=== PATIENT | male | born 1950 | race Caucasian/White ===

== ENCOUNTER 2018-10-10 13:51 | Inpatient (IN) | payer OTHER, MEDICARE ==
[~2018-10-10] VITALS: Ht 182.9 cm; Wt 76.6 kg
[~2018-10-10 13:51] MED LIST: AMLO10TA6 PO; CHOL1CRY3 PO; FENO160T PO; LIPA1CAP45 PO; LOSA25TA25 PO; LOVA40TA2 PO; MELO15TA24 PO; OMEG1CAP24 PO; PANT40TA5 PO; TAMS0.4C2 PO; TRAM50TA2 PO
[2018-10-10 14:29] LABS: BASOPHILS # (AUTO) 0.03 x10^3/uL (0-0.1); BASOPHILS % (AUTO) 0 % (0-1); EOSINOPHILS # (AUTO) 0.03 x10^3/uL (0-0.4); EOSINOPHILS % (AUTO) 0 % (1-7); LYMPHOCYTES # (AUTO) 1.74 x10^3/uL (1-3.4); LYMPHOCYTES % (AUTO) 17 % (22-44); MD NO; MEAN CORPUSCULAR HEMOGLOBIN 30.3 pg (27.5-34.5); MEAN CORPUSCULAR HGB CONC 32.6 g/dL (33.2-36.2); MEAN CORPUSCULAR VOLUME 92.9 fL (81-97); MEAN PLATELET VOLUME 7.3 fL (7.4-10.4); MONOCYTES # (AUTO) 1.09 x10^3/uL (0.2-0.8); MONOCYTES % (AUTO) 11 % (2-9); NEUTROPHILS # (AUTO) 7.39 x10^3/uL (1.8-6.8); NEUTROPHILS % (AUTO) 72 % (42-75); PLATELET COUNT 475 x10^3/uL (130-400); RED BLOOD COUNT 3.78 x10^6/uL (4.38-5.82)
[2018-10-10] MEDS ORDERED: SODIUM CHLORIDE FLUSH 10ML SYR IVF ONE ×2 (14:30→15:30)
[2018-10-10 14:37] LABS: ALANINE AMINOTRANSFERASE 79 U/L (12-78); ALBUMIN 3.8 g/dL (3.4-5.0); ANION GAP 5 mmol/L (5-15); CALCIUM 9.4 mg/dL (8.5-10.1); CHLORIDE 104 mmol/L (98-107)
[2018-10-10 14:40] LABS: ALKALINE PHOSPHATASE 106 U/L (45-117); BILIRUBIN,TOTAL 0.5 mg/dL (0.2-1.0); TOTAL PROTEIN 7.9 g/dL (6.4-8.2)
--- NOTE | 2018-10-10 14:53 | NUR ---
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
--- NOTE | 2018-10-10 15:06 | NUR ---
PATIENT PRESENTS TO ED TODAY FOR ABD PAIN/BILAT FLANK PAIN STARTING TODAY, ADMITTED TWICE IN SEP 2018 FOR PANCREATITIS. SPOUSE AT BEDSIDE, EKG COMPLETED BY EMT. LABS COMPLETED. 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 AWAITING FURTHER ORDERS, CALL LIGHT WITHIN REACH.
[2018-10-10] MEDS ORDERED: SODIUM CHLORIDE 0.9% 1,000 ML IV ONE ×2 (15:23→15:54)
[2018-10-10] MEDS ORDERED: ONDANSETRON 2MG/ML, 2ML IVPush ONE (15:30)
[2018-10-10] MEDS ORDERED: HYDROmorphone 2 MG/ML, 1ML ONE ×4 (15:32→22:34)
[2018-10-10] MEDS ORDERED: ONDANSETRON 2MG/ML, 2ML ONE (15:32)
[2018-10-10] MEDS: HYDROmorphone 2 MG/ML, 1ML IVPush PRN ×2 (15:38→16:10)
[2018-10-10] MEDS ORDERED: ONDANSETRON 2MG/ML, 2ML IVPush PRN ×2 (16:00→16:30)
[2018-10-10] MEDS ORDERED: HYDROmorphone 1 MG/ML, 1ML IVPush PRN (16:00)
[2018-10-10] MEDS ORDERED: SODIUM CHLORIDE FLUSH 10ML SYR IVF PRN (16:00)
[2018-10-10] MEDS ORDERED: BISACODYL 10 MG SUPP PR PRN (16:30)
[2018-10-10] MEDS ORDERED: hydrALAzine 20 MG/ML, 1ML IVPush PRN (16:30)
[2018-10-10] MEDS ORDERED: POLYETHYLENE GLYCOL 17 GM PACKET PO PRN (16:30)
[2018-10-10] MEDS ORDERED: DOCUSATE 100 MG CAPSULE PO PRN (16:30)
[2018-10-10 17:39] VITALS: BP 146/76
[2018-10-10] MEDS: morphine SULFATE 10 MG/ML, 1ML IVPush PRN ×2 (18:19→18:49)
[2018-10-10] MEDS: ENOXAPARIN 40 MG/0.4 ML SQ SCH (18:22)
[2018-10-10] MEDS: LACTATED RINGERS 1,000 ML IV SCH (18:50)
[2018-10-10] MEDS: PROTEASE PO SCH (20:00)
[2018-10-10] MEDS: LIPASE PO SCH (20:00)
[2018-10-10] MEDS: [UNRECOGNIZED DRUG - OTHER] PO SCH (20:00)
[2018-10-10] MEDS: AMYLASE PO SCH (20:00)
[2018-10-10 20:28] VITALS: BP 148/79
[2018-10-10] MEDS: HYDROmorphone 1 MG/ML, 1ML IV PRN ×2 (22:06→22:38)
[2018-10-11] MEDS: LACTATED RINGERS 1,000 ML IV SCH ×4 (01:03→20:59)
[2018-10-11 01:31] VITALS: BP 134/76
[2018-10-11] MEDS ORDERED: HYDROmorphone 2 MG/ML, 1ML ONE ×7 (01:40→20:56)
[2018-10-11] MEDS: HYDROmorphone 1 MG/ML, 1ML IV PRN ×7 (01:45→20:58)
[2018-10-11] MEDS: TAMSULOSIN 0.4 MG CAP.ER.24H PO SCH ×2 (04:58→07:49)
[2018-10-11 05:36] LABS: BASOPHILS # (AUTO) 0.02 x10^3/uL (0-0.1); BASOPHILS % (AUTO) 0 % (0-1); EOSINOPHILS # (AUTO) 0.02 x10^3/uL (0-0.4); EOSINOPHILS % (AUTO) 0 % (1-7); LYMPHOCYTES # (AUTO) 2.19 x10^3/uL (1-3.4); LYMPHOCYTES % (AUTO) 24 % (22-44); MD NO; MEAN CORPUSCULAR HEMOGLOBIN 30.6 pg (27.5-34.5); MEAN CORPUSCULAR HGB CONC 32.8 g/dL (33.2-36.2); MEAN CORPUSCULAR VOLUME 93.3 fL (81-97); MEAN PLATELET VOLUME 7.6 fL (7.4-10.4); MONOCYTES # (AUTO) 0.91 x10^3/uL (0.2-0.8); MONOCYTES % (AUTO) 10 % (2-9); NEUTROPHILS # (AUTO) 5.94 x10^3/uL (1.8-6.8); NEUTROPHILS % (AUTO) 65 % (42-75); PLATELET COUNT 385 x10^3/uL (130-400); RED BLOOD COUNT 3.42 x10^6/uL (4.38-5.82); RED CELL DISTRIBUTION WIDTH 15.3 % (9.4-14.8)
[2018-10-11 05:37] LABS: ALBUMIN 3.3 g/dL (3.4-5.0); ANION GAP 8 mmol/L (5-15); CALCIUM 9.1 mg/dL (8.5-10.1); CHLORIDE 104 mmol/L (98-107)
[2018-10-11 05:40] LABS: ALANINE AMINOTRANSFERASE 59 U/L (12-78); ALKALINE PHOSPHATASE 92 U/L (45-117); BILIRUBIN,TOTAL 0.4 mg/dL (0.2-1.0); CREATININE 0.94 mg/dL (0.7-1.3); TOTAL PROTEIN 6.9 g/dL (6.4-8.2)
[2018-10-11 07:15] VITALS: BP 127/78
[2018-10-11] MEDS: AMYLASE PO SCH ×3 (07:49→21:00)
[2018-10-11] MEDS: PROTEASE PO SCH ×3 (07:49→21:00)
[2018-10-11] MEDS: LIPASE PO SCH ×3 (07:49→21:00)
[2018-10-11] MEDS: [UNRECOGNIZED DRUG - OTHER] PO SCH ×3 (07:49→21:00)
[2018-10-11] MEDS ORDERED: TAMSULOSIN 0.4 MG CAP.ER.24H PO SCH (09:00)
[2018-10-11 13:28] VITALS: BP 118/75
[2018-10-11] MEDS: ENOXAPARIN 40 MG/0.4 ML SQ SCH (17:49)
[2018-10-11] MEDS: NICOTINE 14MG/24 HR PATCH.TD24 TD SCH (17:49)
[2018-10-11 19:37] VITALS: BP 142/81
[2018-10-12 00:18] VITALS: BP 144/83
[2018-10-12] MEDS ORDERED: HYDROmorphone 2 MG/ML, 1ML ONE ×8 (00:20→22:26)
[2018-10-12] MEDS: HYDROmorphone 1 MG/ML, 1ML IV PRN ×8 (00:22→22:31)
[2018-10-12] MEDS: LACTATED RINGERS 1,000 ML IV SCH (03:24)
[2018-10-12] MEDS: TAMSULOSIN 0.4 MG CAP.ER.24H PO SCH (06:08)
[2018-10-12 06:10] LABS: BASOPHILS # (AUTO) 0.03 x10^3/uL (0-0.1); BASOPHILS % (AUTO) 0 % (0-1); CHLORIDE 100 mmol/L (98-107); EOSINOPHILS # (AUTO) 0.02 x10^3/uL (0-0.4); EOSINOPHILS % (AUTO) 0 % (1-7); LYMPHOCYTES # (AUTO) 2.02 x10^3/uL (1-3.4); LYMPHOCYTES % (AUTO) 23 % (22-44); MD NO; MEAN CORPUSCULAR HEMOGLOBIN 31.6 pg (27.5-34.5); MEAN CORPUSCULAR HGB CONC 34.3 g/dL (33.2-36.2); MEAN CORPUSCULAR VOLUME 92.1 fL (81-97); MEAN PLATELET VOLUME 7.5 fL (7.4-10.4); MONOCYTES # (AUTO) 1.08 x10^3/uL (0.2-0.8); MONOCYTES % (AUTO) 12 % (2-9); NEUTROPHILS # (AUTO) 5.58 x10^3/uL (1.8-6.8); NEUTROPHILS % (AUTO) 64 % (42-75); PLATELET COUNT 300 x10^3/uL (130-400); RED CELL DISTRIBUTION WIDTH 14.4 % (9.4-14.8)
[2018-10-12 06:18] LABS: ALANINE AMINOTRANSFERASE 47 U/L (12-78); ALKALINE PHOSPHATASE 94 U/L (45-117); ANION GAP 8 mmol/L (5-15); BILIRUBIN,TOTAL 0.6 mg/dL (0.2-1.0); CALCIUM 9.2 mg/dL (8.5-10.1); CREATININE 0.78 mg/dL (0.7-1.3); TOTAL PROTEIN 6.3 g/dL (6.4-8.2)
[2018-10-12] MEDS ORDERED: SODIUM CHLORIDE 0.9% 1,000 ML IV SCH (07:30)
[2018-10-12] MEDS: POTASSIUM CHLORIDE 10 MEQ in D5%-0.45% NACL 1,000 ML IV SCH ×2 (08:42→18:43)
[2018-10-12] MEDS: LIPASE PO SCH ×3 (08:43→21:00)
[2018-10-12] MEDS: [UNRECOGNIZED DRUG - OTHER] PO SCH ×3 (08:43→21:00)
[2018-10-12] MEDS: PROTEASE PO SCH ×3 (08:43→21:00)
[2018-10-12] MEDS: AMYLASE PO SCH ×3 (08:43→21:00)
[2018-10-12 08:51] VITALS: BP 138/75
[2018-10-12 13:12] VITALS: BP 130/72
[2018-10-12 18:28] VITALS: BP 151/90
[2018-10-12] MEDS: NICOTINE 14MG/24 HR PATCH.TD24 TD SCH (18:37)
[2018-10-12] MEDS: ENOXAPARIN 40 MG/0.4 ML SQ SCH (18:37)
[2018-10-12 18:45] LABS: ANION GAP 4 mmol/L (5-15); CALCIUM 8.8 mg/dL (8.5-10.1); CHLORIDE 99 mmol/L (98-107)
[2018-10-12 18:46] LABS: CREATININE 0.93 mg/dL (0.7-1.3)
[2018-10-13 00:57] VITALS: BP 135/72
[2018-10-13] MEDS ORDERED: HYDROmorphone 2 MG/ML, 1ML ONE ×2 (02:09→05:01)
[2018-10-13] MEDS: HYDROmorphone 1 MG/ML, 1ML IV PRN ×2 (02:11→05:03)
[2018-10-13] MEDS: POTASSIUM CHLORIDE 10 MEQ in D5%-0.45% NACL 1,000 ML IV SCH (04:59)
[2018-10-13 05:58] LABS: BASOPHILS # (AUTO) 0.01 x10^3/uL (0-0.1); BASOPHILS % (AUTO) 0 % (0-1); EOSINOPHILS # (AUTO) 0.03 x10^3/uL (0-0.4); EOSINOPHILS % (AUTO) 1 % (1-7); LYMPHOCYTES # (AUTO) 1.87 x10^3/uL (1-3.4); LYMPHOCYTES % (AUTO) 37 % (22-44); MD NO; MEAN CORPUSCULAR HEMOGLOBIN 31.4 pg (27.5-34.5); MEAN CORPUSCULAR VOLUME 92.3 fL (81-97); MEAN PLATELET VOLUME 7.4 fL (7.4-10.4); MONOCYTES # (AUTO) 0.73 x10^3/uL (0.2-0.8); MONOCYTES % (AUTO) 15 % (2-9); NEUTROPHILS # (AUTO) 2.37 x10^3/uL (1.8-6.8); NEUTROPHILS % (AUTO) 47 % (42-75); PLATELET COUNT 286 x10^3/uL (130-400); RED BLOOD COUNT 2.85 x10^6/uL (4.38-5.82); RED CELL DISTRIBUTION WIDTH 14.7 % (9.4-14.8)
[2018-10-13 06:04] LABS: CHLORIDE 102 mmol/L (98-107)
[2018-10-13 06:53] LABS: ALANINE AMINOTRANSFERASE 55 U/L (12-78); ALBUMIN 2.8 g/dL (3.4-5.0); ALKALINE PHOSPHATASE 81 U/L (45-117); ANION GAP 8 mmol/L (5-15); BILIRUBIN,TOTAL 0.6 mg/dL (0.2-1.0); CALCIUM 8.9 mg/dL (8.5-10.1); CREATININE 0.79 mg/dL (0.7-1.3); TOTAL PROTEIN 6.2 g/dL (6.4-8.2)
[2018-10-13 07:15] VITALS: BP 131/73
[2018-10-13] MEDS: [UNRECOGNIZED DRUG - OTHER] PO SCH (09:00)
[2018-10-13] MEDS: PROTEASE PO SCH (09:00)
[2018-10-13] MEDS: AMYLASE PO SCH (09:00)
[2018-10-13] MEDS: LIPASE PO SCH (09:00)
[2018-10-13] MEDS ORDERED: OXYcodone/APAP 5/325MG TABLET PO PRN (09:30)
[2018-10-13] MEDS: TAMSULOSIN 0.4 MG CAP.ER.24H PO SCH (09:38)
[2018-10-13] MEDS ORDERED: ACET500T71 PO ×2 (12:06→12:13)
[2018-10-13 13:50] VITALS: BP 138/74
[2018-10-13] MEDS ORDERED: TRAM50TA2 PO (14:03)
[2018-10-13] MEDS ORDERED: OXYC5CAP2 PO (14:26)
== END 2018-10-13 14:50 | disposition home or self-care (01) | DRG 439 ==
LOC: ED 16:21 → EDIP 16:25 → 4NOR 17:11
PROVIDERS: ADMIT Hospitalist; ATTEND Hospitalist
DX: K85.00 Idiopathic acute pancreatitis without necrosis or infection (principal); E87.1 Hypo-osmolality and hyponatremia; K86.3 Pseudocyst of pancreas; K86.1 Other chronic pancreatitis; R74.0 Nonspecific elevation of levels of transaminase and lactic acid dehydrogenase [LDH]; D64.9 Anemia, unspecified; E16.2 Hypoglycemia, unspecified; E78.5 Hyperlipidemia, unspecified; G89.29 Other chronic pain; I11.9 Hypertensive heart disease without heart failure; Z82.49 Family history of ischemic heart disease and other diseases of the circulatory system; Z87.891 Personal history of nicotine dependence; Z90.49 Acquired absence of other specified parts of digestive tract; Z80.9 Family history of malignant neoplasm, unspecified
CPT/HCPCS: 36415; 80048; 80053; 83690; 85025; 93005; 96374; 96375; 96376; 99285; G0378; J1170; J1650; J2405; J3480; J2270; J7030; J7120

== ENCOUNTER 2018-10-24 18:40 | Inpatient (IN) | payer OTHER, MEDICARE ==
[~2018-10-24] VITALS: Ht 182.9 cm; Wt 80.1 kg
[~2018-10-24 18:40] MED LIST changes: +ACET500T71 PO; -AMLO10TA6 PO; +AMLO10TA8 PO; +OXYC5CAP2 PO
[2018-10-24 19:28] LABS: BASOPHILS # (AUTO) 0.04 x10^3/uL (0-0.1); BASOPHILS % (AUTO) 0 % (0-1); EOSINOPHILS # (AUTO) 0.01 x10^3/uL (0-0.4); EOSINOPHILS % (AUTO) 0 % (1-7); LYMPHOCYTES # (AUTO) 1.55 x10^3/uL (1-3.4); LYMPHOCYTES % (AUTO) 16 % (22-44); MD NO; MEAN CORPUSCULAR HEMOGLOBIN 31.2 pg (27.5-34.5); MEAN CORPUSCULAR HGB CONC 34.2 g/dL (33.2-36.2); MEAN CORPUSCULAR VOLUME 91.4 fL (81-97); MEAN PLATELET VOLUME 7.6 fL (7.4-10.4); MONOCYTES # (AUTO) 1.29 x10^3/uL (0.2-0.8); MONOCYTES % (AUTO) 14 % (2-9); NEUTROPHILS # (AUTO) 6.59 x10^3/uL (1.8-6.8); NEUTROPHILS % (AUTO) 70 % (42-75); PLATELET COUNT 335 x10^3/uL (130-400); RED BLOOD COUNT 3.83 x10^6/uL (4.38-5.82); RED CELL DISTRIBUTION WIDTH 15.1 % (9.4-14.8)
[2018-10-24] MEDS ORDERED: SODIUM CHLORIDE FLUSH 10ML SYR IVF ONE (19:30)
[2018-10-24 19:38] LABS: ANION GAP 7 mmol/L (5-15); CALCIUM 9.8 mg/dL (8.5-10.1); CHLORIDE 102 mmol/L (98-107)
--- NOTE | 2018-10-24 19:42 | NUR ---
PT AMBULATED TO ROOM WITH STEADY GAIT. PT REPORTS BEING IN THE HOSPITAL X9 DAYS AGO FOR PANCREATITIS. PT REPORTS SAME PAIN JUST "LOWER" TO PRIOR PAIN. PT REPORTS LOW ABD PAIN, SHARP STARTING THIS MORNING. PT STATES LAST OXY 5MG AT 1600 TODAY WITH NO RELIEF FROM PAIN. PT REPORT HE HAS A F/U APPT AT THE END OF THE MONTH BUT PAIN RETURNED. PT STATES REGULAR BM'S. PT STATES PAINFUL URINATION, URINE PROVIDED AND SENT TO LAB. BLOOD DRAWN PRIOR TO ARRIVAL TO ROOM. PT PLACED ON VS MONITORING. SO AT BEDSIDE. PT A/OX4, BREATHING E/U. DENIES N/V/D. PT AWAITING MD LIMA.
[2018-10-24 19:44] LABS: ALANINE AMINOTRANSFERASE 25 U/L (12-78); ALKALINE PHOSPHATASE 60 U/L (45-117); BILIRUBIN,TOTAL 0.9 mg/dL (0.2-1.0); CREATININE 1.22 mg/dL (0.7-1.3); TOTAL PROTEIN 7.8 g/dL (6.4-8.2)
[2018-10-24] MEDS ORDERED: ONDANSETRON 2MG/ML, 2ML IVPush ONE (20:00)
[2018-10-24] MEDS ORDERED: SODIUM CHLORIDE 0.9% 1,000ML IVBOLUS ONE (20:00)
[2018-10-24 20:02] LABS: CULTURE INDICATED? YES; MICROSCOPIC INDICATED
[2018-10-24] MEDS ORDERED: MORPHINE SULFATE 4 MG/ML, 1ML ONE ×2 (20:50→21:32)
[2018-10-24] MEDS ORDERED: ONDANSETRON 2MG/ML, 2ML ONE (20:50)
[2018-10-24] MEDS: MORPHINE SULFATE 4 MG/ML, 1ML IVPush PRN ×2 (20:56→21:34)
--- NOTE | 2018-10-24 20:56 | NUR ---
IV PLACED, PT RECIEVED MEDS PER ORDERS, SEE EMAR. PT REPORTS MORPHINE DOES NOT USUALLY HELP WITH PAIN AND THAT "THEY USUALLY GIVE ME DILAUDID." PT WILLING TO TRY THE MORPHINE.
--- NOTE | 2018-10-24 21:00 | NUR ---
PT TO CT VIA [facility].
[2018-10-24] MEDS ORDERED: OMNIPAQUE 350 MG/ML, 100ML BOTTLE ONE (21:11)
--- NOTE | 2018-10-24 21:43 | NUR ---
PT RECIEVED SECOND DOSE OF MORPHINE WITH LITTLE TO NO RELIEF OF PAIN. MD JEFFRIES NOTIFIED. AWAITING ORDERS.
[2018-10-24] MEDS ORDERED: HYDROmorphone 2 MG/ML, 1ML IVPush PRN (22:00)
[2018-10-24] MEDS ORDERED: HYDROmorphone 2 MG/ML, 1ML ONE (22:03)
--- NOTE | 2018-10-24 22:07 | NUR ---
PT RECIEVED DILAUDID PER ORDERS. SEE EMAR. WILL MONITOR. VS MONITORING. CALL LIGHT IN REACH.
--- NOTE | 2018-10-24 22:12 | NUR ---
[facility] TO BEDSIDE FOR PT EVAL.
--- NOTE | 2018-10-24 22:23 | NUR ---
[facility] EVAL COMPLETE. PT REPORTS IMPROVED PAIN WITH DILAUDID.
[2018-10-24] MEDS ORDERED: BISACODYL 10 MG SUPP PR PRN (22:30)
[2018-10-24] MEDS ORDERED: ONDANSETRON 2MG/ML, 2ML IVPush PRN (22:30)
[2018-10-24] MEDS ORDERED: ACETAMINOPHEN 325 MG TABLET PO PRN (22:30)
--- NOTE | 2018-10-24 22:32 | NUR ---
REPORT TO PAPITO ACOSTA. PT TO GO TO ROOM.
[2018-10-24 22:46] VITALS: BP 114/66
[2018-10-24] MEDS ORDERED: PANCRELIPASE MC SCH (23:00)
[2018-10-24] MEDS: LACTATED RINGERS 1,000 ML IV SCH (23:26)
[2018-10-24] MEDS: CEFTRIAXONE PMX 1GM/50ML 50 ML IV SCH (23:26)
[2018-10-24] MEDS: CREON 36000 UNIT HOMEMEDPO SCH (23:45)
[2018-10-25] MEDS: AMLODIPINE 10 MG TAB PO SCH ×2 (00:51→22:16)
[2018-10-25] MEDS: LOSARTAN 25MG TABLET PO SCH ×2 (00:52→22:17)
[2018-10-25] MEDS: PANTOPROZOLE 40MG TABLET PO SCH ×3 (00:52→22:16)
[2018-10-25] MEDS: FENOFIBRATE 145 MG TABLET PO SCH ×2 (00:52→22:16)
[2018-10-25] MEDS: LOVASTATIN 40 MG TABLET PO SCH ×2 (00:52→22:16)
[2018-10-25] MEDS: HYDROmorphone 2 MG/ML, 1ML IVPush PRN ×7 (00:53→22:19)
[2018-10-25 01:42] VITALS: BP 108/66
[2018-10-25] MEDS: LACTATED RINGERS 1,000 ML IV SCH ×4 (04:27→20:03)
[2018-10-25 05:25] LABS: CHLORIDE 104 mmol/L (98-107)
[2018-10-25 05:28] LABS: BASOPHILS # (AUTO) 0.03 x10^3/uL (0-0.1); BASOPHILS % (AUTO) 0 % (0-1); EOSINOPHILS # (AUTO) 0.01 x10^3/uL (0-0.4); EOSINOPHILS % (AUTO) 0 % (1-7); LYMPHOCYTES % (AUTO) 22 % (22-44); MD NO; MEAN CORPUSCULAR HEMOGLOBIN 30.9 pg (27.5-34.5); MEAN CORPUSCULAR HGB CONC 33.4 g/dL (33.2-36.2); MEAN CORPUSCULAR VOLUME 92.7 fL (81-97); MEAN PLATELET VOLUME 7.5 fL (7.4-10.4); MONOCYTES # (AUTO) 1.14 x10^3/uL (0.2-0.8); MONOCYTES % (AUTO) 15 % (2-9); NEUTROPHILS # (AUTO) 4.71 x10^3/uL (1.8-6.8); NEUTROPHILS % (AUTO) 62 % (42-75); PLATELET COUNT 265 x10^3/uL (130-400); RED BLOOD COUNT 3.42 x10^6/uL (4.38-5.82); RED CELL DISTRIBUTION WIDTH 14.7 % (9.4-14.8)
[2018-10-25 05:32] LABS: ALANINE AMINOTRANSFERASE 21 U/L (12-78); ALBUMIN 3.3 g/dL (3.4-5.0); ALKALINE PHOSPHATASE 48 U/L (45-117); ANION GAP 7 mmol/L (5-15); BILIRUBIN,TOTAL 0.8 mg/dL (0.2-1.0); CALCIUM 9.6 mg/dL (8.5-10.1); CREATININE 0.97 mg/dL (0.7-1.3); TOTAL PROTEIN 6.4 g/dL (6.4-8.2)
[2018-10-25 08:18] VITALS: BP 115/68
[2018-10-25] MEDS: CHOLECALCIFEROL 5,000u TAB PO SCH (08:35)
[2018-10-25] MEDS: TAMSULOSIN 0.4 MG CAP.ER.24H PO SCH (08:36)
[2018-10-25] MEDS: CREON 36000 UNIT HOMEMEDPO SCH ×4 (08:45→22:17)
[2018-10-25 14:35] VITALS: BP 98/56
[2018-10-25 20:00] VITALS: BP 123/69
[2018-10-25] MEDS: CEFTRIAXONE PMX 1GM/50ML 50 ML IV SCH (22:28)
[2018-10-26] MEDS: LACTATED RINGERS 1,000 ML IV SCH ×5 (01:24→23:33)
[2018-10-26] MEDS: HYDROmorphone 2 MG/ML, 1ML IVPush PRN ×7 (01:31→21:15)
[2018-10-26 08:00] VITALS: BP 119/64
[2018-10-26] MEDS: TAMSULOSIN 0.4 MG CAP.ER.24H PO SCH (08:00)
[2018-10-26] MEDS: CHOLECALCIFEROL 5,000u TAB PO SCH (08:00)
[2018-10-26] MEDS: PANTOPROZOLE 40MG TABLET PO SCH ×2 (08:00→21:00)
[2018-10-26 08:28] LABS: BASOPHILS # (AUTO) 0.02 x10^3/uL (0-0.1); BASOPHILS % (AUTO) 0 % (0-1); EOSINOPHILS # (AUTO) 0.03 x10^3/uL (0-0.4); EOSINOPHILS % (AUTO) 0 % (1-7); LYMPHOCYTES # (AUTO) 1.33 x10^3/uL (1-3.4); LYMPHOCYTES % (AUTO) 19 % (22-44); MD NO; MEAN CORPUSCULAR HEMOGLOBIN 30.7 pg (27.5-34.5); MEAN CORPUSCULAR HGB CONC 33.5 g/dL (33.2-36.2); MEAN CORPUSCULAR VOLUME 91.8 fL (81-97); MEAN PLATELET VOLUME 7.2 fL (7.4-10.4); MONOCYTES # (AUTO) 0.93 x10^3/uL (0.2-0.8); MONOCYTES % (AUTO) 13 % (2-9); NEUTROPHILS # (AUTO) 4.88 x10^3/uL (1.8-6.8); NEUTROPHILS % (AUTO) 68 % (42-75); PLATELET COUNT 242 x10^3/uL (130-400); RED BLOOD COUNT 3.03 x10^6/uL (4.38-5.82); RED CELL DISTRIBUTION WIDTH 14.5 % (9.4-14.8)
[2018-10-26 08:42] LABS: ALANINE AMINOTRANSFERASE 18 U/L (12-78); ALBUMIN 2.7 g/dL (3.4-5.0); ANION GAP 5 mmol/L (5-15); CALCIUM 8.9 mg/dL (8.5-10.1); CHLORIDE 103 mmol/L (98-107); CREATININE 0.79 mg/dL (0.7-1.3)
[2018-10-26 08:43] LABS: ALKALINE PHOSPHATASE 42 U/L (45-117); BILIRUBIN,TOTAL 0.5 mg/dL (0.2-1.0); TOTAL PROTEIN 5.7 g/dL (6.4-8.2)
[2018-10-26] MEDS: CREON 36000 UNIT HOMEMEDPO SCH ×3 (09:00→21:00)
[2018-10-26 13:55] VITALS: BP 120/68
[2018-10-26 20:58] VITALS: BP 149/78
[2018-10-26] MEDS: LOSARTAN 25MG TABLET PO SCH (21:00)
[2018-10-26] MEDS: AMLODIPINE 10 MG TAB PO SCH (21:00)
[2018-10-26] MEDS: LOVASTATIN 40 MG TABLET PO SCH (21:00)
[2018-10-26] MEDS: FENOFIBRATE 145 MG TABLET PO SCH (21:01)
[2018-10-26] MEDS: CEFTRIAXONE PMX 1GM/50ML 50 ML IV SCH (22:42)
[2018-10-27] MEDS: HYDROmorphone 2 MG/ML, 1ML IVPush PRN ×7 (00:22→22:15)
[2018-10-27 01:50] VITALS: BP 128/71
[2018-10-27] MEDS: LACTATED RINGERS 1,000 ML IV SCH ×4 (03:50→23:27)
[2018-10-27 04:58] LABS: BASOPHILS # (AUTO) 0.03 x10^3/uL (0-0.1); BASOPHILS % (AUTO) 1 % (0-1); EOSINOPHILS # (AUTO) 0.04 x10^3/uL (0-0.4); EOSINOPHILS % (AUTO) 1 % (1-7); LYMPHOCYTES # (AUTO) 1.61 x10^3/uL (1-3.4); LYMPHOCYTES % (AUTO) 25 % (22-44); MD NO; MEAN CORPUSCULAR HEMOGLOBIN 31.4 pg (27.5-34.5); MEAN CORPUSCULAR HGB CONC 34.4 g/dL (33.2-36.2); MEAN CORPUSCULAR VOLUME 91.3 fL (81-97); MEAN PLATELET VOLUME 7.3 fL (7.4-10.4); MONOCYTES # (AUTO) 0.94 x10^3/uL (0.2-0.8); MONOCYTES % (AUTO) 15 % (2-9); NEUTROPHILS # (AUTO) 3.74 x10^3/uL (1.8-6.8); NEUTROPHILS % (AUTO) 59 % (42-75); PLATELET COUNT 241 x10^3/uL (130-400); RED BLOOD COUNT 3.03 x10^6/uL (4.38-5.82); RED CELL DISTRIBUTION WIDTH 14.9 % (9.4-14.8)
[2018-10-27 05:07] LABS: ALANINE AMINOTRANSFERASE 22 U/L (12-78); ALBUMIN 2.6 g/dL (3.4-5.0); ANION GAP 7 mmol/L (5-15); CALCIUM 8.7 mg/dL (8.5-10.1); CHLORIDE 102 mmol/L (98-107); CREATININE 0.78 mg/dL (0.7-1.3)
[2018-10-27 05:09] LABS: ALKALINE PHOSPHATASE 40 U/L (45-117); BILIRUBIN,TOTAL 0.3 mg/dL (0.2-1.0); TOTAL PROTEIN 5.7 g/dL (6.4-8.2)
[2018-10-27] MEDS ORDERED: MIDAZOLAM 1 MG/ML, 2ML ONE (08:08)
[2018-10-27] MEDS ORDERED: FENTANYL PF 100 MCG/2ML ONE (08:08)
[2018-10-27] MEDS ORDERED: PROPOFOL 50 ML ONE (08:09)
[2018-10-27] MEDS ORDERED: ONDANSETRON 2MG/ML, 2ML ONE (08:27)
[2018-10-27] MEDS ORDERED: PROMETHAZINE 25 MG/ML, 1ML IV PRN (08:30)
[2018-10-27] MEDS ORDERED: LORazepam 2 MG/ML, 1ML IVPush PRN (08:30)
[2018-10-27] MEDS ORDERED: OXYcodone 5 MG/5 ML ORAL.SOL UDC PO PRN (08:30)
[2018-10-27] MEDS ORDERED: HALOPERIDOL 5 MG/ML IV PRN (08:30)
[2018-10-27] MEDS ORDERED: MEPERIDINE/PF 25MG/0.5ML IVPush PRN (08:30)
[2018-10-27] MEDS ORDERED: HYDROmorphone 2 MG/ML, 1ML IVPush PRN (08:30)
[2018-10-27] MEDS ORDERED: hydrALAzine 20 MG/ML, 1ML IV PRN (08:30)
[2018-10-27] MEDS ORDERED: FENTANYL PF 100 MCG/2ML IV PRN (08:30)
[2018-10-27] MEDS: CREON 36000 UNIT HOMEMEDPO SCH ×3 (09:00→20:34)
[2018-10-27] MEDS ORDERED: OXYcodone 5 MG/5 ML ORAL.SOL UDC ONE (09:34)
[2018-10-27 10:10] VITALS: BP 127/72
[2018-10-27] MEDS: PANTOPROZOLE 40MG TABLET PO SCH ×2 (10:57→20:40)
[2018-10-27] MEDS: CHOLECALCIFEROL 5,000u TAB PO SCH (10:57)
[2018-10-27] MEDS: TAMSULOSIN 0.4 MG CAP.ER.24H PO SCH (10:57)
[2018-10-27 15:43] VITALS: BP 127/74
[2018-10-27 20:38] VITALS: BP 129/76
[2018-10-27] MEDS: LOVASTATIN 40 MG TABLET PO SCH (20:40)
[2018-10-27] MEDS: AMLODIPINE 10 MG TAB PO SCH (20:40)
[2018-10-27] MEDS: FENOFIBRATE 145 MG TABLET PO SCH (20:40)
[2018-10-27] MEDS: LOSARTAN 25MG TABLET PO SCH (20:40)
[2018-10-27] MEDS: CEFTRIAXONE PMX 1GM/50ML 50 ML IV SCH (22:15)
[2018-10-28] MEDS: HYDROmorphone 2 MG/ML, 1ML IVPush PRN ×3 (01:26→07:47)
[2018-10-28 01:52] VITALS: BP 127/75
[2018-10-28] MEDS: LACTATED RINGERS 1,000 ML IV SCH ×2 (04:27→08:04)
[2018-10-28 05:58] LABS: BASOPHILS # (AUTO) 0.01 x10^3/uL (0-0.1); BASOPHILS % (AUTO) 0 % (0-1); EOSINOPHILS # (AUTO) 0.04 x10^3/uL (0-0.4); EOSINOPHILS % (AUTO) 1 % (1-7); LYMPHOCYTES # (AUTO) 1.57 x10^3/uL (1-3.4); LYMPHOCYTES % (AUTO) 27 % (22-44); MD NO; MEAN CORPUSCULAR HEMOGLOBIN 31.5 pg (27.5-34.5); MEAN CORPUSCULAR HGB CONC 34.4 g/dL (33.2-36.2); MEAN CORPUSCULAR VOLUME 91.8 fL (81-97); MEAN PLATELET VOLUME 7.4 fL (7.4-10.4); MONOCYTES % (AUTO) 14 % (2-9); NEUTROPHILS % (AUTO) 58 % (42-75); PLATELET COUNT 250 x10^3/uL (130-400); RED CELL DISTRIBUTION WIDTH 14.7 % (9.4-14.8)
[2018-10-28 06:08] LABS: CHLORIDE 101 mmol/L (98-107)
[2018-10-28 06:18] LABS: ALANINE AMINOTRANSFERASE 28 U/L (12-78); ALBUMIN 2.7 g/dL (3.4-5.0); ALKALINE PHOSPHATASE 43 U/L (45-117); ANION GAP 6 mmol/L (5-15); BILIRUBIN,TOTAL 0.4 mg/dL (0.2-1.0); CALCIUM 8.6 mg/dL (8.5-10.1); CREATININE 0.88 mg/dL (0.7-1.3); TOTAL PROTEIN 5.7 g/dL (6.4-8.2)
[2018-10-28] MEDS: CHOLECALCIFEROL 5,000u TAB PO SCH (07:48)
[2018-10-28] MEDS: TAMSULOSIN 0.4 MG CAP.ER.24H PO SCH (07:48)
[2018-10-28] MEDS: PANTOPROZOLE 40MG TABLET PO SCH (07:48)
[2018-10-28] MEDS ORDERED: POTASSIUM CHLORIDE 20 MEQ TAB.ER.PRT PO ONE (08:00)
[2018-10-28] MEDS: CREON 36000 UNIT HOMEMEDPO SCH (08:05)
[2018-10-28 08:11] VITALS: BP 133/77
[2018-10-28] MEDS ORDERED: OXYC5CAP2 PO (09:09)
== END 2018-10-28 12:26 | disposition home or self-care (01) | DRG 438 ==
LOC: ED 20:52 → EDIP 22:40 → 3NE 22:42
PROVIDERS: ADMIT Internal Medicine; ATTEND Internal Medicine
PROC: 0DJ08ZZ Inspection of Upper Intestinal Tract, Via Natural or Artificial Opening Endoscopic (ICD-10-PCS; principal; 2018-10-27 08:00)
DX: K85.00 Idiopathic acute pancreatitis without necrosis or infection (principal); E43 Unspecified severe protein-calorie malnutrition; N39.0 Urinary tract infection, site not specified; E87.1 Hypo-osmolality and hyponatremia; K86.3 Pseudocyst of pancreas; F10.20 Alcohol dependence, uncomplicated; D64.9 Anemia, unspecified; E78.00 Pure hypercholesterolemia, unspecified; E78.5 Hyperlipidemia, unspecified; K86.1 Other chronic pancreatitis; R00.0 Tachycardia, unspecified; F17.210 Nicotine dependence, cigarettes, uncomplicated; I11.9 Hypertensive heart disease without heart failure; Z68.23 Body mass index [BMI] 23.0-23.9, adult; Z80.8 Family history of malignant neoplasm of other organs or systems; Z82.49 Family history of ischemic heart disease and other diseases of the circulatory system
CPT/HCPCS: 36415; 74177; 74181; 80053; 81001; 83690; 85025; 87077; 87086; 87186; G0378; J0696; J1170; J2250; J2405; J2704; J3010; Q9967; J7030; J7120

== ENCOUNTER 2018-11-12 16:02 | Inpatient (IN) | payer OTHER, MEDICARE ==
[~2018-11-12] VITALS: Ht 182.9 cm; Wt 80.9 kg
--- NOTE | 2018-11-12 16:36 | NUR ---
Assumed care of patient. C/O epigastric pain radiating to back. Hx pancreatitis. Hypotensive. EKG. IV started, labs drawn, fluids hung. at bedside. Placed on NIBP, pulse ox and telemetry monitor. Will continue to monitor.
[2018-11-12] MEDS ORDERED: OMEP-110 PO (16:41)
[2018-11-12] MEDS ORDERED: MELO15TA24 PO (16:41)
--- NOTE | 2018-11-12 16:45 | NUR ---
US at bedside.
[2018-11-12 16:57] LABS: ALANINE AMINOTRANSFERASE 16 U/L (12-78); ALBUMIN 3.8 g/dL (3.4-5.0); ANION GAP 7 mmol/L (5-15); CALCIUM 9.7 mg/dL (8.5-10.1); CHLORIDE 111 mmol/L (98-107); CREATININE 1.61 mg/dL (0.7-1.3)
[2018-11-12] MEDS ORDERED: SODIUM CHLORIDE 0.9% 1,000 ML IV ONE (16:59)
[2018-11-12 17:00] LABS: ALKALINE PHOSPHATASE 58 U/L (45-117); BILIRUBIN,TOTAL 0.4 mg/dL (0.2-1.0)
[2018-11-12 17:10] LABS: BASOPHILS # (AUTO) 0.01 x10^3/uL (0-0.1); BASOPHILS % (AUTO) 0 % (0-1); EOSINOPHILS # (AUTO) 0.01 x10^3/uL (0-0.4); EOSINOPHILS % (AUTO) 0 % (1-7); LYMPHOCYTES # (AUTO) 1.57 x10^3/uL (1-3.4); LYMPHOCYTES % (AUTO) 11 % (22-44); MD NO; MEAN CORPUSCULAR HEMOGLOBIN 30.9 pg (27.5-34.5); MEAN CORPUSCULAR HGB CONC 33.8 g/dL (33.2-36.2); MEAN CORPUSCULAR VOLUME 91.6 fL (81-97); MEAN PLATELET VOLUME 7.7 fL (7.4-10.4); MONOCYTES # (AUTO) 0.83 x10^3/uL (0.2-0.8); MONOCYTES % (AUTO) 6 % (2-9); NEUTROPHILS # (AUTO) 11.46 x10^3/uL (1.8-6.8); NEUTROPHILS % (AUTO) 83 % (42-75); PLATELET COUNT 350 x10^3/uL (130-400); RED BLOOD COUNT 3.48 x10^6/uL (4.38-5.82); RED CELL DISTRIBUTION WIDTH 16.2 % (9.4-14.8)
[2018-11-12] MEDS ORDERED: BISACODYL 10 MG SUPP PR PRN (17:30)
[2018-11-12] MEDS ORDERED: POLYETHYLENE GLYCOL 17 GM PACKET PO PRN (17:30)
[2018-11-12] MEDS ORDERED: DOCUSATE 100 MG CAPSULE PO PRN (17:30)
[2018-11-12] MEDS ORDERED: hydrALAzine 20 MG/ML, 1ML IVPush PRN (17:30)
--- NOTE | 2018-11-12 17:32 | NUR ---
BP improved. No other needs.
[2018-11-12] MEDS ORDERED: ONDANSETRON 2MG/ML, 2ML ONE (18:08)
[2018-11-12] MEDS ORDERED: FENTANYL PF 100 MCG/2ML ONE ×2 (18:09→20:11)
[2018-11-12] MEDS ORDERED: HEPARIN 5,000 UNITS/ML, 1ML ONE (18:09)
[2018-11-12] MEDS: ONDANSETRON 2MG/ML, 2ML IVPush PRN (18:12)
[2018-11-12] MEDS: FENTANYL PF 100 MCG/2ML IVPush PRN ×3 (18:12→22:23)
[2018-11-12] MEDS: HEPARIN 5,000 UNITS/ML, 1ML SQ SCH (18:12)
--- NOTE | 2018-11-12 18:22 | NUR ---
C/O pain. Meds admin and LR requested. at bedside. No other needs.
[2018-11-12] MEDS: POTASSIUM CHLORIDE 20 MEQ in LACTATED RINGERS 1,000 ML IV SCH ×2 (18:47→23:48)
--- NOTE | 2018-11-12 18:59 | NUR ---
Provided with glycerin swabs. Refusing hospital bed. No other needs.
[2018-11-12 19:19] LABS: MICROSCOPIC NOT IND
[2018-11-12 19:21] LABS: CULTURE INDICATED? NO
--- NOTE | 2018-11-12 19:25 | NUR ---
Resting in [facility]. VSS.
--- NOTE | 2018-11-12 19:46 | NUR ---
DAVE Joseph clarified urine orders with MD Emigdio. Lab updated.
[2018-11-12 21:14] VITALS: BP 146/75
[2018-11-13] MEDS: FENTANYL PF 100 MCG/2ML IVPush PRN ×5 (00:30→09:31)
[2018-11-13] MEDS: HEPARIN 5,000 UNITS/ML, 1ML SQ SCH ×3 (02:12→17:22)
[2018-11-13 02:53] VITALS: BP 131/77
[2018-11-13] MEDS ORDERED: HYDROmorphone 1 MG/ML, 1ML IV ONE (04:30)
[2018-11-13] MEDS ORDERED: HYDROmorphone 2 MG/ML, 1ML ONE (04:36)
[2018-11-13] MEDS: ONDANSETRON 2MG/ML, 2ML IVPush PRN ×2 (04:50→21:52)
[2018-11-13] MEDS: POTASSIUM CHLORIDE 20 MEQ in LACTATED RINGERS 1,000 ML IV SCH ×4 (05:27→22:28)
[2018-11-13 06:02] LABS: ALANINE AMINOTRANSFERASE 15 U/L (12-78); ALBUMIN 3.3 g/dL (3.4-5.0); ANION GAP 6 mmol/L (5-15); CALCIUM 8.9 mg/dL (8.5-10.1); CHLORIDE 110 mmol/L (98-107); CREATININE 1.13 mg/dL (0.7-1.3)
[2018-11-13 06:04] LABS: ALKALINE PHOSPHATASE 38 U/L (45-117); BILIRUBIN,TOTAL 0.8 mg/dL (0.2-1.0); TOTAL PROTEIN 6.2 g/dL (6.4-8.2)
[2018-11-13 06:09] LABS: BASOPHILS # (AUTO) 0.03 x10^3/uL (0-0.1); BASOPHILS % (AUTO) 0 % (0-1); EOSINOPHILS # (AUTO) 0.01 x10^3/uL (0-0.4); EOSINOPHILS % (AUTO) 0 % (1-7); LYMPHOCYTES # (AUTO) 1.68 x10^3/uL (1-3.4); LYMPHOCYTES % (AUTO) 19 % (22-44); MD NO; MEAN CORPUSCULAR HEMOGLOBIN 31.2 pg (27.5-34.5); MEAN CORPUSCULAR HGB CONC 34.1 g/dL (33.2-36.2); MEAN CORPUSCULAR VOLUME 91.7 fL (81-97); MEAN PLATELET VOLUME 7.1 fL (7.4-10.4); MONOCYTES # (AUTO) 0.79 x10^3/uL (0.2-0.8); MONOCYTES % (AUTO) 9 % (2-9); NEUTROPHILS # (AUTO) 6.19 x10^3/uL (1.8-6.8); NEUTROPHILS % (AUTO) 71 % (42-75); PLATELET COUNT 308 x10^3/uL (130-400); RED BLOOD COUNT 3.23 x10^6/uL (4.38-5.82); RED CELL DISTRIBUTION WIDTH 16.5 % (9.4-14.8)
[2018-11-13 08:42] VITALS: BP 128/78
[2018-11-13] MEDS ORDERED: TAMSULOSIN 0.4 MG CAP.ER.24H PO ONE (10:00)
[2018-11-13] MEDS: HYDROmorphone 2 MG/ML, 1ML IVPush PRN ×6 (11:34→23:51)
[2018-11-13 13:45] VITALS: BP 123/69
[2018-11-13] MEDS ORDERED: HYDROmorphone 1 MG/ML, 1ML IVPush ONE (15:00)
[2018-11-13 18:47] VITALS: BP 145/80
[2018-11-14] MEDS: HYDROmorphone 2 MG/ML, 1ML IVPush PRN ×9 (01:46→22:07)
[2018-11-14] MEDS: HEPARIN 5,000 UNITS/ML, 1ML SQ SCH ×3 (01:48→18:13)
[2018-11-14 02:06] VITALS: BP 126/74
[2018-11-14] MEDS: POTASSIUM CHLORIDE 20 MEQ in LACTATED RINGERS 1,000 ML IV SCH ×4 (03:22→21:20)
[2018-11-14 08:00] VITALS: BP 128/76
[2018-11-14 08:17] LABS: ANION GAP 6 mmol/L (5-15); CALCIUM 9.4 mg/dL (8.5-10.1); CHLORIDE 107 mmol/L (98-107); CREATININE 0.96 mg/dL (0.7-1.3)
[2018-11-14] MEDS: TAMSULOSIN 0.4 MG CAP.ER.24H PO SCH (09:27)
[2018-11-14 13:30] VITALS: BP 121/70
[2018-11-14 19:30] VITALS: BP 130/70
[2018-11-15] MEDS: HYDROmorphone 2 MG/ML, 1ML IVPush PRN ×11 (00:06→23:19)
[2018-11-15 01:20] VITALS: BP 122/69
[2018-11-15] MEDS: HEPARIN 5,000 UNITS/ML, 1ML SQ SCH ×3 (01:55→17:48)
[2018-11-15] MEDS: POTASSIUM CHLORIDE 20 MEQ in LACTATED RINGERS 1,000 ML IV SCH ×5 (03:20→23:19)
[2018-11-15 06:03] LABS: ANION GAP 7 mmol/L (5-15); CALCIUM 9.1 mg/dL (8.5-10.1); CHLORIDE 103 mmol/L (98-107)
[2018-11-15 06:04] LABS: CREATININE 0.98 mg/dL (0.7-1.3)
[2018-11-15 07:00] VITALS: BP 127/71
[2018-11-15] MEDS: TAMSULOSIN 0.4 MG CAP.ER.24H PO SCH (08:47)
[2018-11-15 13:38] VITALS: BP 125/69
[2018-11-15 20:00] VITALS: BP 143/73
[2018-11-16 00:37] VITALS: BP 129/76
[2018-11-16] MEDS: HEPARIN 5,000 UNITS/ML, 1ML SQ SCH ×3 (01:04→17:35)
[2018-11-16] MEDS: HYDROmorphone 2 MG/ML, 1ML IVPush PRN ×9 (01:05→23:38)
[2018-11-16 06:46] VITALS: BP 124/66
[2018-11-16] MEDS: TAMSULOSIN 0.4 MG CAP.ER.24H PO SCH (08:22)
[2018-11-16] MEDS: POTASSIUM CHLORIDE 20 MEQ in LACTATED RINGERS 1,000 ML IV SCH ×3 (08:22→20:55)
[2018-11-16 13:38] VITALS: BP 144/71
[2018-11-16 20:00] VITALS: BP 144/69
[2018-11-17 01:43] VITALS: BP 130/69
[2018-11-17] MEDS: POTASSIUM CHLORIDE 20 MEQ in LACTATED RINGERS 1,000 ML IV SCH ×2 (02:49→06:48)
[2018-11-17] MEDS: HYDROmorphone 2 MG/ML, 1ML IVPush PRN ×3 (02:49→09:06)
[2018-11-17] MEDS: HEPARIN 5,000 UNITS/ML, 1ML SQ SCH ×2 (02:49→09:05)
[2018-11-17 08:03] VITALS: BP 128/61
[2018-11-17] MEDS: TAMSULOSIN 0.4 MG CAP.ER.24H PO SCH (09:06)
== END 2018-11-17 11:45 | disposition home or self-care (01) | DRG 438 ==
LOC: ED 17:28 → EDIP 17:29 → ED 18:16 → 4NOR 20:33 → 4EST 11-14 12:38 → 4NOR 11-14 12:38
PROVIDERS: ADMIT Hospitalist; ATTEND Hospitalist
DX: K85.00 Idiopathic acute pancreatitis without necrosis or infection (principal); N17.0 Acute kidney failure with tubular necrosis; K86.3 Pseudocyst of pancreas; K86.1 Other chronic pancreatitis; D64.9 Anemia, unspecified; E78.00 Pure hypercholesterolemia, unspecified; E78.5 Hyperlipidemia, unspecified; G89.29 Other chronic pain; F10.20 Alcohol dependence, uncomplicated; R73.9 Hyperglycemia, unspecified; I11.9 Hypertensive heart disease without heart failure; Z59.7 Insufficient social insurance and welfare support; Z82.49 Family history of ischemic heart disease and other diseases of the circulatory system; Z80.9 Family history of malignant neoplasm, unspecified; Z87.891 Personal history of nicotine dependence; Z90.49 Acquired absence of other specified parts of digestive tract
CPT/HCPCS: 36415; 74181; 76700; 80048; 80053; 81003; 82436; 82570; 83690; 84133; 84156; 84300; 85025; 93005; G0378; J1170; J1644; J2405; J3010; J3480; J7030; J7120

== ENCOUNTER 2018-11-28 18:31 | Inpatient (IN) | payer OTHER, MEDICARE ==
[~2018-11-28] VITALS: Ht 180.3 cm; Wt 74.6 kg
[~2018-11-28 18:31] MED LIST changes: +OMEP-110 PO
[2018-11-28 19:14] LABS: BASOPHILS # (AUTO) 0.03 x10^3/uL (0-0.1); BASOPHILS % (AUTO) 0 % (0-1); EOSINOPHILS # (AUTO) 0.02 x10^3/uL (0-0.4); EOSINOPHILS % (AUTO) 0 % (1-7); LYMPHOCYTES # (AUTO) 2.33 x10^3/uL (1-3.4); LYMPHOCYTES % (AUTO) 29 % (22-44); MD NO; MEAN CORPUSCULAR HEMOGLOBIN 31.3 pg (27.5-34.5); MEAN CORPUSCULAR HGB CONC 34.2 g/dL (33.2-36.2); MEAN CORPUSCULAR VOLUME 91.5 fL (81-97); MEAN PLATELET VOLUME 7.6 fL (7.4-10.4); MONOCYTES # (AUTO) 0.68 x10^3/uL (0.2-0.8); MONOCYTES % (AUTO) 8 % (2-9); NEUTROPHILS # (AUTO) 5.07 x10^3/uL (1.8-6.8); NEUTROPHILS % (AUTO) 62 % (42-75); PLATELET COUNT 336 x10^3/uL (130-400); RED BLOOD COUNT 3.48 x10^6/uL (4.38-5.82)
--- NOTE | 2018-11-28 19:15 | NUR ---
PT TO ROOM FROM LOBBY. CARE ASSUMED. ERP AT BEDSIDE TO EVAL.
[2018-11-28 19:25] LABS: ALANINE AMINOTRANSFERASE 17 U/L (12-78); ALBUMIN 3.8 g/dL (3.4-5.0); ANION GAP 8 mmol/L (5-15); CALCIUM 8.8 mg/dL (8.5-10.1); CHLORIDE 110 mmol/L (98-107)
[2018-11-28] MEDS ORDERED: ONDANSETRON 2MG/ML, 2ML ONE (19:27)
[2018-11-28] MEDS ORDERED: HYDROmorphone 1 MG/ML, 1ML ONE ×2 (19:27→20:20)
[2018-11-28 19:29] LABS: ALKALINE PHOSPHATASE 55 U/L (45-117); BILIRUBIN,TOTAL 0.3 mg/dL (0.2-1.0); TROPONIN I < 0.015 ng/mL (0.000-0.045)
[2018-11-28] MEDS ORDERED: ONDANSETRON 2MG/ML, 2ML IVPush ONE (19:30)
[2018-11-28] MEDS ORDERED: SODIUM CHLORIDE 0.9% 1,000ML IVBOLUS ONE (19:30)
[2018-11-28] MEDS: HYDROmorphone 2 MG/ML, 1ML IVPush PRN (19:46)
[2018-11-28] MEDS ORDERED: HYDROmorphone 2 MG/ML, 1ML IVPush PRN (20:30)
--- NOTE | 2018-11-28 20:35 | NUR ---
PT CONTINUES WITH SEVERE PAIN--DISCUSSED WITH ERP AND ORDER RECEIVED. PT MEDICATED PER MAR FOR PAIN. VSS. CALL LIGHT IN REACH. PT TO BE ADMITTED TO FLOOR.
[2018-11-28] MEDS ORDERED: TAMS0.4C2 PO (20:56)
[2018-11-29 00:11] VITALS: BP 135/78
[2018-11-29] MEDS ORDERED: BISACODYL 10 MG SUPP PR PRN (00:30)
[2018-11-29] MEDS ORDERED: DOCUSATE 100 MG CAPSULE PO PRN (00:30)
[2018-11-29] MEDS ORDERED: PROMETHAZINE 25 MG/ML, 1ML IM PRN (00:30)
[2018-11-29] MEDS ORDERED: ONDANSETRON ODT 4 MG PO PRN (00:30)
[2018-11-29] MEDS ORDERED: hydrALAzine 20 MG/ML, 1ML IVPush PRN (00:30)
[2018-11-29] MEDS ORDERED: LABETALOL 5 MG/ML SYRINGE IVPush PRN (00:30)
[2018-11-29] MEDS ORDERED: POLYETHYLENE GLYCOL 17 GM PACKET PO PRN (00:30)
[2018-11-29] MEDS: HEPARIN 5,000 UNITS/ML, 1ML SQ SCH ×3 (00:30→16:46)
[2018-11-29] MEDS: morphine SULFATE 10 MG/ML, 1ML IVPush PRN ×4 (00:47→08:54)
[2018-11-29] MEDS: SODIUM CHLORIDE 0.9% 1,000 ML IV SCH ×4 (01:05→21:22)
[2018-11-29 01:45] LABS: HEMOGLOBIN A1C 4.8 % (4.2-6.3)
[2018-11-29 01:48] LABS: FREE T4 (FREE THYROXINE) 1.17 ng/dL (0.76-1.46); THYROID STIMULATING HORMONE 1.43 mIU/L (0.358-3.740)
[2018-11-29] MEDS: HYDROmorphone 2 MG/ML, 1ML IVPush PRN ×5 (01:49→21:21)
[2018-11-29 02:14] VITALS: BP 134/78
[2018-11-29 04:48] LABS: BASOPHILS # (AUTO) 0.03 x10^3/uL (0-0.1); BASOPHILS % (AUTO) 0 % (0-1); EOSINOPHILS # (AUTO) 0.01 x10^3/uL (0-0.4); EOSINOPHILS % (AUTO) 0 % (1-7); LYMPHOCYTES # (AUTO) 1.82 x10^3/uL (1-3.4); LYMPHOCYTES % (AUTO) 18 % (22-44); MD NO; MEAN CORPUSCULAR HEMOGLOBIN 31.1 pg (27.5-34.5); MEAN CORPUSCULAR HGB CONC 33.6 g/dL (33.2-36.2); MEAN CORPUSCULAR VOLUME 92.6 fL (81-97); MEAN PLATELET VOLUME 7.7 fL (7.4-10.4); MONOCYTES # (AUTO) 0.94 x10^3/uL (0.2-0.8); MONOCYTES % (AUTO) 9 % (2-9); NEUTROPHILS # (AUTO) 7.25 x10^3/uL (1.8-6.8); NEUTROPHILS % (AUTO) 72 % (42-75); PLATELET COUNT 289 x10^3/uL (130-400); RED BLOOD COUNT 3.55 x10^6/uL (4.38-5.82); RED CELL DISTRIBUTION WIDTH 17.1 % (9.4-14.8)
[2018-11-29 04:51] LABS: ALANINE AMINOTRANSFERASE 17 U/L (12-78); ALBUMIN 3.7 g/dL (3.4-5.0); ANION GAP 6 mmol/L (5-15); CALCIUM 8.8 mg/dL (8.5-10.1); CHLORIDE 110 mmol/L (98-107); CHOLESTEROL, TOTAL 89 mg/dL (140-239); CREATININE 0.92 mg/dL (0.7-1.3)
[2018-11-29 04:54] LABS: ALKALINE PHOSPHATASE 40 U/L (45-117); BILIRUBIN,TOTAL 0.6 mg/dL (0.2-1.0); CHOL/HDL RATIO 2.5; HDL CHOL % 39 % (26-37); HDL CHOLESTEROL (DIRECT) 35 mg/dL (40-60); LDL CHOLESTEROL,CALCULATED 41 mg/dL (54-169); LDL/HDL RATIO 1.2 (0.5-3.0); TOTAL PROTEIN 6.8 g/dL (6.4-8.2); TRIGLYCERIDES 66 mg/dL (50-200); VLDL CHOLESTEROL 13 mg/dL (0-25)
[2018-11-29] MEDS: OXYcodone IR 5MG TABLET PO PRN (05:37)
[2018-11-29] MEDS: PANTOPRAZOLE 40 MG IV IVPush SCH (07:25)
[2018-11-29 08:12] VITALS: BP 130/75
[2018-11-29] MEDS: CHOLECALCIFEROL 5,000u TAB PO SCH (08:54)
[2018-11-29] MEDS: TAMSULOSIN 0.4 MG CAP.ER.24H PO SCH (08:54)
[2018-11-29] MEDS ORDERED: MAGNESIUM SULFATE PMX 2GM/50ML 50 ML IV ONE (10:00)
[2018-11-29 12:40] VITALS: BP 112/68
[2018-11-29 20:25] VITALS: BP 132/72
[2018-11-29] MEDS: LOSARTAN 25MG TABLET PO SCH (21:22)
[2018-11-29] MEDS: FENOFIBRATE 145 MG TABLET PO SCH (21:22)
[2018-11-29] MEDS: AMLODIPINE 10 MG TAB PO SCH (21:22)
[2018-11-29] MEDS: LOVASTATIN 40 MG TABLET PO SCH (21:22)
[2018-11-30] MEDS: ONDANSETRON 2MG/ML, 2ML IVPush PRN ×2 (00:12→09:42)
[2018-11-30] MEDS: HEPARIN 5,000 UNITS/ML, 1ML SQ SCH ×3 (00:12→16:11)
[2018-11-30] MEDS: HYDROmorphone 2 MG/ML, 1ML IVPush PRN ×7 (00:12→19:44)
[2018-11-30 02:57] VITALS: BP 136/73
[2018-11-30] MEDS: SODIUM CHLORIDE 0.9% 1,000 ML IV SCH (03:27)
[2018-11-30 04:52] LABS: ALBUMIN 3.4 g/dL (3.4-5.0); ANION GAP 7 mmol/L (5-15); CALCIUM 8.7 mg/dL (8.5-10.1); CHLORIDE 107 mmol/L (98-107)
[2018-11-30 04:57] LABS: ALANINE AMINOTRANSFERASE 38 U/L (12-78); ALKALINE PHOSPHATASE 45 U/L (45-117); BILIRUBIN,TOTAL 0.8 mg/dL (0.2-1.0); CREATININE 0.93 mg/dL (0.7-1.3); TOTAL PROTEIN 6.3 g/dL (6.4-8.2)
[2018-11-30 07:00] VITALS: BP 131/69
[2018-11-30] MEDS: PANTOPRAZOLE 40 MG IV IVPush SCH (07:39)
[2018-11-30] MEDS: TAMSULOSIN 0.4 MG CAP.ER.24H PO SCH (09:43)
[2018-11-30] MEDS: CHOLECALCIFEROL 5,000u TAB PO SCH (09:43)
[2018-11-30 12:15] VITALS: BP 123/78
[2018-11-30 20:15] VITALS: BP 131/70
[2018-11-30] MEDS: LOSARTAN 25MG TABLET PO SCH (21:03)
[2018-11-30] MEDS: LOVASTATIN 40 MG TABLET PO SCH (21:03)
[2018-11-30] MEDS: FENOFIBRATE 145 MG TABLET PO SCH (21:03)
[2018-11-30] MEDS: AMLODIPINE 10 MG TAB PO SCH (21:03)
[2018-11-30] MEDS: OXYcodone IR 5MG TABLET PO PRN (23:00)
[2018-12-01] MEDS: HYDROmorphone 2 MG/ML, 1ML IVPush PRN ×7 (00:10→23:15)
[2018-12-01] MEDS: HEPARIN 5,000 UNITS/ML, 1ML SQ SCH ×3 (00:10→18:03)
[2018-12-01 02:56] VITALS: BP 124/68
[2018-12-01 07:34] VITALS: BP 112/64
[2018-12-01] MEDS: PANTOPRAZOLE 40 MG IV IVPush SCH (09:18)
[2018-12-01] MEDS: TAMSULOSIN 0.4 MG CAP.ER.24H PO SCH (09:18)
[2018-12-01] MEDS: CHOLECALCIFEROL 5,000u TAB PO SCH (09:18)
[2018-12-01] MEDS ORDERED: MAGNESIUM SULFATE PMX 2GM/50ML 50 ML IV ONE (10:00)
[2018-12-01] MEDS ORDERED: LACTATED RINGERS 1,000 ML IV SCH (10:30)
[2018-12-01 10:37] LABS: BASOPHILS # (AUTO) 0.02 x10^3/uL (0-0.1); BASOPHILS % (AUTO) 0 % (0-1); EOSINOPHILS # (AUTO) 0.01 x10^3/uL (0-0.4); EOSINOPHILS % (AUTO) 0 % (1-7); LYMPHOCYTES # (AUTO) 1.24 x10^3/uL (1-3.4); LYMPHOCYTES % (AUTO) 17 % (22-44); MD NO; MEAN CORPUSCULAR HEMOGLOBIN 30.9 pg (27.5-34.5); MEAN CORPUSCULAR HGB CONC 33.3 g/dL (33.2-36.2); MEAN CORPUSCULAR VOLUME 92.8 fL (81-97); MEAN PLATELET VOLUME 7.3 fL (7.4-10.4); MONOCYTES % (AUTO) 11 % (2-9); NEUTROPHILS # (AUTO) 5.26 x10^3/uL (1.8-6.8); NEUTROPHILS % (AUTO) 72 % (42-75); PLATELET COUNT 232 x10^3/uL (130-400); RED BLOOD COUNT 3.29 x10^6/uL (4.38-5.82)
[2018-12-01 10:41] LABS: ALANINE AMINOTRANSFERASE 76 U/L (12-78); ANION GAP 9 mmol/L (5-15); CALCIUM 8.5 mg/dL (8.5-10.1); CHLORIDE 107 mmol/L (98-107)
[2018-12-01 10:43] LABS: ALKALINE PHOSPHATASE 115 U/L (45-117); BILIRUBIN,TOTAL 0.9 mg/dL (0.2-1.0); TOTAL PROTEIN 6.2 g/dL (6.4-8.2)
[2018-12-01] MEDS: LACTATED RINGERS 1,000 ML IV SCH ×2 (10:43→18:04)
[2018-12-01 14:07] VITALS: BP 127/65
[2018-12-01 19:25] VITALS: BP 136/73
[2018-12-01] MEDS: LOVASTATIN 40 MG TABLET PO SCH (20:26)
[2018-12-01] MEDS: FENOFIBRATE 145 MG TABLET PO SCH (20:26)
[2018-12-01] MEDS: AMLODIPINE 10 MG TAB PO SCH (20:26)
[2018-12-02] MEDS: LACTATED RINGERS 1,000 ML IV SCH ×4 (00:48→20:39)
[2018-12-02] MEDS: HEPARIN 5,000 UNITS/ML, 1ML SQ SCH ×3 (02:08→17:35)
[2018-12-02 02:09] VITALS: BP 123/66
[2018-12-02] MEDS: HYDROmorphone 2 MG/ML, 1ML IVPush PRN ×4 (04:05→20:38)
[2018-12-02 05:01] LABS: BASOPHILS # (AUTO) 0.02 x10^3/uL (0-0.1); BASOPHILS % (AUTO) 0 % (0-1); EOSINOPHILS # (AUTO) 0.01 x10^3/uL (0-0.4); EOSINOPHILS % (AUTO) 0 % (1-7); LYMPHOCYTES # (AUTO) 1.19 x10^3/uL (1-3.4); LYMPHOCYTES % (AUTO) 24 % (22-44); MD NO; MEAN CORPUSCULAR HEMOGLOBIN 31.9 pg (27.5-34.5); MEAN CORPUSCULAR VOLUME 91.3 fL (81-97); MONOCYTES # (AUTO) 0.59 x10^3/uL (0.2-0.8); MONOCYTES % (AUTO) 12 % (2-9); NEUTROPHILS # (AUTO) 3.13 x10^3/uL (1.8-6.8); NEUTROPHILS % (AUTO) 63 % (42-75); PLATELET COUNT 209 x10^3/uL (130-400); RED CELL DISTRIBUTION WIDTH 16.6 % (9.4-14.8)
[2018-12-02 05:24] LABS: ALBUMIN 2.8 g/dL (3.4-5.0); ANION GAP 5 mmol/L (5-15); CALCIUM 8.3 mg/dL (8.5-10.1); CHLORIDE 106 mmol/L (98-107)
[2018-12-02 05:29] LABS: ALANINE AMINOTRANSFERASE 55 U/L (12-78); ALKALINE PHOSPHATASE 95 U/L (45-117); BILIRUBIN,TOTAL 0.7 mg/dL (0.2-1.0); CREATININE 0.71 mg/dL (0.7-1.3); TOTAL PROTEIN 5.5 g/dL (6.4-8.2)
[2018-12-02] MEDS: PANTOPRAZOLE 40 MG IV IVPush SCH (08:07)
[2018-12-02] MEDS: CHOLECALCIFEROL 5,000u TAB PO SCH (08:07)
[2018-12-02] MEDS: TAMSULOSIN 0.4 MG CAP.ER.24H PO SCH (08:07)
[2018-12-02 08:46] VITALS: BP 125/70
[2018-12-02] MEDS ORDERED: POTASSIUM CHLORIDE 10% 40 MEQ/30 ML UDC PO ONE ×2 (09:00→13:00)
[2018-12-02 14:02] VITALS: BP 134/72
[2018-12-02 19:14] VITALS: BP 131/74
[2018-12-02] MEDS: AMLODIPINE 10 MG TAB PO SCH (20:38)
[2018-12-02] MEDS: FENOFIBRATE 145 MG TABLET PO SCH (20:38)
[2018-12-02] MEDS: LOVASTATIN 40 MG TABLET PO SCH (20:39)
[2018-12-03 02:03] VITALS: BP 136/84
[2018-12-03] MEDS: HYDROmorphone 2 MG/ML, 1ML IVPush PRN (02:26)
[2018-12-03] MEDS: HEPARIN 5,000 UNITS/ML, 1ML SQ SCH ×2 (02:26→10:00)
[2018-12-03] MEDS: LACTATED RINGERS 1,000 ML IV SCH (02:31)
[2018-12-03 05:25] LABS: BASOPHILS # (AUTO) 0.01 x10^3/uL (0-0.1); BASOPHILS % (AUTO) 0 % (0-1); EOSINOPHILS # (AUTO) 0.04 x10^3/uL (0-0.4); EOSINOPHILS % (AUTO) 1 % (1-7); LYMPHOCYTES # (AUTO) 1.38 x10^3/uL (1-3.4); LYMPHOCYTES % (AUTO) 31 % (22-44); MD NO; MEAN CORPUSCULAR HGB CONC 34.9 g/dL (33.2-36.2); MEAN CORPUSCULAR VOLUME 91.9 fL (81-97); MEAN PLATELET VOLUME 7.9 fL (7.4-10.4); MONOCYTES # (AUTO) 0.53 x10^3/uL (0.2-0.8); MONOCYTES % (AUTO) 12 % (2-9); NEUTROPHILS # (AUTO) 2.55 x10^3/uL (1.8-6.8); NEUTROPHILS % (AUTO) 57 % (42-75); PLATELET COUNT 236 x10^3/uL (130-400); RED BLOOD COUNT 3.27 x10^6/uL (4.38-5.82); RED CELL DISTRIBUTION WIDTH 16.8 % (9.4-14.8)
[2018-12-03 05:30] LABS: ALANINE AMINOTRANSFERASE 48 U/L (12-78); ALBUMIN 3.2 g/dL (3.4-5.0); ANION GAP 5 mmol/L (5-15); CALCIUM 8.9 mg/dL (8.5-10.1); CHLORIDE 106 mmol/L (98-107); CREATININE 0.81 mg/dL (0.7-1.3)
[2018-12-03 05:33] LABS: ALKALINE PHOSPHATASE 82 U/L (45-117); BILIRUBIN,TOTAL 0.7 mg/dL (0.2-1.0); TOTAL PROTEIN 6.5 g/dL (6.4-8.2)
[2018-12-03] MEDS: PANTOPRAZOLE 40 MG IV IVPush SCH (07:59)
[2018-12-03] MEDS: CHOLECALCIFEROL 5,000u TAB PO SCH (07:59)
[2018-12-03] MEDS: TAMSULOSIN 0.4 MG CAP.ER.24H PO SCH (07:59)
[2018-12-03] MEDS ORDERED: OXYcodone/APAP 5/325MG TABLET PO PRN (08:00)
[2018-12-03] MEDS ORDERED: MAGNESIUM SULFATE 4 GM in SODIUM CHLORIDE 0.9% 100 ML IV ONE (08:30)
[2018-12-03] MEDS ORDERED: POTASSIUM CHLORIDE 20 MEQ TAB.ER.PRT PO ONE ×2 (08:30→11:30)
[2018-12-03] MEDS ORDERED: NEUTRA PHOS K 250 MG TABLET PO SCH (09:00)
[2018-12-03 09:34] VITALS: BP 122/77
[2018-12-03] MEDS ORDERED: MAGNESIUM SULFATE PMX 4GM/100M 100 ML IV ONE (10:43)
== END 2018-12-03 15:58 | disposition home or self-care (01) | DRG 439 ==
LOC: ED 20:41 → EDIP 20:45 → 3NW 21:29
PROVIDERS: ADMIT Internal Medicine; ATTEND Internal Medicine
DX: K85.00 Idiopathic acute pancreatitis without necrosis or infection (principal); K86.2 Cyst of pancreas; E44.0 Moderate protein-calorie malnutrition; K86.1 Other chronic pancreatitis; E78.00 Pure hypercholesterolemia, unspecified; E78.5 Hyperlipidemia, unspecified; E83.42 Hypomagnesemia; E86.9 Volume depletion, unspecified; I10 Essential (primary) hypertension; K21.9 Gastro-esophageal reflux disease without esophagitis; N40.0 Benign prostatic hyperplasia without lower urinary tract symptoms; Z80.8 Family history of malignant neoplasm of other organs or systems; Z82.49 Family history of ischemic heart disease and other diseases of the circulatory system; Z87.891 Personal history of nicotine dependence; Z68.22 Body mass index [BMI] 22.0-22.9, adult
CPT/HCPCS: 36415; 71046; 80053; 80061; 83036; 83690; 83735; 84100; 84439; 84443; 84484; 85025; 93005; 96361; 96374; 96375; 99285; G0378; J1170; J1644; J2405; C9113; J2270; J3475; J7030; J7120

== ENCOUNTER 2019-05-03 12:13 | Inpatient (IN) | payer OTHER, MEDICARE ==
[~2019-05-03] VITALS: Ht 182.9 cm; Wt 84.8 kg
--- NOTE | 2019-05-03 12:44 | NUR ---
MED STUDENT IS AT THE BEDSIDE FOR ASSESSMENT
[2019-05-03 12:53] LABS: BASOPHILS % (AUTO) 0 % (0-1); EOSINOPHILS # (AUTO) 0.09 x10^3/uL (0-0.4); EOSINOPHILS % (AUTO) 1 % (1-7); LYMPHOCYTES % (AUTO) 9 % (22-44); MD NO; MEAN CORPUSCULAR HEMOGLOBIN 32.2 pg (27.5-34.5); MEAN CORPUSCULAR HGB CONC 33.3 g/dL (33.2-36.2); MEAN CORPUSCULAR VOLUME 96.6 fL (81-97); MEAN PLATELET VOLUME 8.6 fL (7.4-10.4); MONOCYTES # (AUTO) 0.68 x10^3/uL (0.2-0.8); MONOCYTES % (AUTO) 6 % (2-9); NEUTROPHILS # (AUTO) 10.13 x10^3/uL (1.8-6.8); NEUTROPHILS % (AUTO) 84 % (42-75); PLATELET COUNT 245 x10^3/uL (130-400); RED BLOOD COUNT 4.28 x10^6/uL (4.38-5.82); RED CELL DISTRIBUTION WIDTH 14.1 % (9.4-14.8)
[2019-05-03] MEDS ORDERED: SODIUM CHLORIDE 0.9% 1,000 ML IV ONE (13:04)
[2019-05-03 13:06] LABS: ALANINE AMINOTRANSFERASE 24 U/L (12-78); ALBUMIN 4.2 g/dL (3.4-5.0); ANION GAP 7 mmol/L (5-15); CALCIUM 9.2 mg/dL (8.5-10.1); CHLORIDE 110 mmol/L (98-107); CREATININE 1.44 mg/dL (0.7-1.3)
[2019-05-03 13:08] LABS: ALKALINE PHOSPHATASE 58 U/L (45-117); BILIRUBIN,TOTAL 0.5 mg/dL (0.2-1.0); TOTAL PROTEIN 7.9 g/dL (6.4-8.2)
[2019-05-03] MEDS ORDERED: SODIUM CHLORIDE FLUSH 10ML SYR IVF ONE (13:30)
[2019-05-03] MEDS ORDERED: ONDANSETRON 2MG/ML, 2ML IVPush ONE (13:30)
[2019-05-03] MEDS ORDERED: HYDROmorphone 2 MG/ML, 1ML IVPush PRN (13:30)
[2019-05-03] MEDS ORDERED: ONDANSETRON 2MG/ML, 2ML ONE (13:38)
[2019-05-03] MEDS ORDERED: HYDROmorphone 2 MG/ML, 1ML ONE (13:38)
--- NOTE | 2019-05-03 13:45 | NUR ---
IS AT THE BEDSIDE FOR DISPO
--- NOTE | 2019-05-03 14:07 | NUR ---
VERBAL SBAR EXCHANGED Spencer BARBOUR (DAVE) ON THE FLOOR FOR ADMISSION. WE WILL BEGIN TO PREPARE FOR TRANSPORT AT THIS TIME.
[2019-05-03 14:45] VITALS: BP 136/77
[2019-05-03] MEDS ORDERED: PROMETHAZINE 25 MG/ML, 1ML IM PRN (15:00)
[2019-05-03] MEDS ORDERED: DOCUSATE 100 MG CAPSULE PO PRN (15:00)
[2019-05-03] MEDS ORDERED: morphine SULFATE 10 MG/ML, 1ML IVPush PRN (15:00)
[2019-05-03] MEDS ORDERED: ACETAMINOPHEN 325 MG TABLET PO PRN (15:00)
[2019-05-03] MEDS ORDERED: ONDANSETRON ODT 4 MG PO PRN (15:00)
[2019-05-03] MEDS ORDERED: hydrALAzine 20 MG/ML, 1ML IVPush PRN (15:00)
[2019-05-03] MEDS ORDERED: POLYETHYLENE GLYCOL 17 GM PACKET PO PRN (15:00)
[2019-05-03 15:22] LABS: HEMOGLOBIN A1C 5.5 % (4.2-6.3)
[2019-05-03] MEDS: OXYcodone IR 5MG TABLET PO PRN ×2 (15:54→20:04)
[2019-05-03] MEDS: ENOXAPARIN 40 MG/0.4 ML SQ SCH (15:55)
[2019-05-03] MEDS: LACTATED RINGERS 1,000 ML IV SCH ×2 (15:56→20:05)
[2019-05-03] MEDS ORDERED: HYDROmorphone 1 MG/ML, 1ML INJ IV PRN (18:00)
[2019-05-03] MEDS: HYDROmorphone 2 MG/ML, 1ML IVPush PRN ×2 (18:35→21:41)
[2019-05-03 19:47] VITALS: BP 148/75
[2019-05-03] MEDS ORDERED: TAMSULOSIN 0.4 MG CAP.ER.24H PO ONE (20:00)
[2019-05-03] MEDS: AMLODIPINE 10 MG TAB PO SCH (20:05)
[2019-05-03] MEDS: LOSARTAN 25MG TABLET PO SCH (20:05)
[2019-05-03] MEDS ORDERED: LOVASTATIN 40 MG TABLET PO SCH (21:00)
[2019-05-03] MEDS: ONDANSETRON 2MG/ML, 2ML IVPush PRN (21:46)
[2019-05-04] MEDS: LACTATED RINGERS 1,000 ML IV SCH ×3 (00:44→10:56)
[2019-05-04] MEDS: HYDROmorphone 2 MG/ML, 1ML IVPush PRN ×6 (01:04→21:58)
[2019-05-04 02:08] VITALS: BP 111/71
[2019-05-04] MEDS: ONDANSETRON 2MG/ML, 2ML IVPush PRN (05:11)
[2019-05-04 05:35] LABS: BASOPHILS # (AUTO) 0.03 x10^3/uL (0-0.1); BASOPHILS % (AUTO) 0 % (0-1); EOSINOPHILS # (AUTO) 0.01 x10^3/uL (0-0.4); EOSINOPHILS % (AUTO) 0 % (1-7); LYMPHOCYTES # (AUTO) 1.21 x10^3/uL (1-3.4); LYMPHOCYTES % (AUTO) 15 % (22-44); MD NO; MEAN CORPUSCULAR HEMOGLOBIN 32.4 pg (27.5-34.5); MEAN CORPUSCULAR HGB CONC 33.8 g/dL (33.2-36.2); MEAN PLATELET VOLUME 8.2 fL (7.4-10.4); MONOCYTES # (AUTO) 0.81 x10^3/uL (0.2-0.8); MONOCYTES % (AUTO) 10 % (2-9); NEUTROPHILS # (AUTO) 5.95 x10^3/uL (1.8-6.8); NEUTROPHILS % (AUTO) 74 % (42-75); PLATELET COUNT 177 x10^3/uL (130-400); RED BLOOD COUNT 3.81 x10^6/uL (4.38-5.82); RED CELL DISTRIBUTION WIDTH 13.9 % (9.4-14.8)
[2019-05-04 05:43] LABS: CHLORIDE 109 mmol/L (98-107)
[2019-05-04 05:54] LABS: ALANINE AMINOTRANSFERASE 122 U/L (12-78); ALBUMIN 3.3 g/dL (3.4-5.0); ALKALINE PHOSPHATASE 54 U/L (45-117); ANION GAP 7 mmol/L (5-15); CALCIUM 8.7 mg/dL (8.5-10.1); CHOL/HDL RATIO 3.1; CHOLESTEROL, TOTAL 78 mg/dL (140-239); CREATININE 1.02 mg/dL (0.7-1.3); HDL CHOL % 32 % (26-37); HDL CHOLESTEROL (DIRECT) 25 mg/dL (40-60); LDL CHOLESTEROL,CALCULATED 34 mg/dL (54-169); LDL/HDL RATIO 1.4 (0.5-3.0); TOTAL PROTEIN 6.3 g/dL (6.4-8.2); TRIGLYCERIDES 95 mg/dL (50-200); VLDL CHOLESTEROL 19 mg/dL (0-25)
[2019-05-04] MEDS: OXYcodone IR 5MG TABLET PO PRN ×2 (07:36→20:53)
[2019-05-04 08:02] VITALS: BP 132/72
[2019-05-04] MEDS: TAMSULOSIN 0.4 MG CAP.ER.24H PO SCH (09:25)
[2019-05-04] MEDS ORDERED: POTASSIUM PHOSPHATE 22 MEQ in SODIUM CHLORIDE 0.9% 500 ML IV ONE (12:00)
[2019-05-04 13:11] VITALS: BP 128/70
[2019-05-04] MEDS: ENOXAPARIN 40 MG/0.4 ML SQ SCH (15:06)
[2019-05-04] MEDS: OxyconTIN ER 10 MG TAB.ER PO SCH (16:10)
[2019-05-04 20:00] VITALS: BP 124/72
[2019-05-04] MEDS: AMLODIPINE 10 MG TAB PO SCH (20:53)
[2019-05-04] MEDS: LOSARTAN 25MG TABLET PO SCH (20:53)
[2019-05-05] MEDS: HYDROmorphone 2 MG/ML, 1ML IVPush PRN ×7 (01:18→23:29)
[2019-05-05] MEDS: LACTATED RINGERS 1,000 ML IV SCH ×3 (01:18→18:07)
[2019-05-05 01:47] VITALS: BP 135/76
[2019-05-05] MEDS: OxyconTIN ER 10 MG TAB.ER PO SCH ×2 (03:58→16:39)
[2019-05-05 05:38] LABS: CHLORIDE 106 mmol/L (98-107)
[2019-05-05 05:48] LABS: ALANINE AMINOTRANSFERASE 77 U/L (12-78); ALKALINE PHOSPHATASE 51 U/L (45-117); ANION GAP 8 mmol/L (5-15); CALCIUM 8.3 mg/dL (8.5-10.1); CREATININE 1.08 mg/dL (0.7-1.3); TOTAL PROTEIN 5.9 g/dL (6.4-8.2)
[2019-05-05 08:00] VITALS: BP 108/65
[2019-05-05 08:38] LABS: BASOPHILS # (AUTO) 0.03 x10^3/uL (0-0.1); BASOPHILS % (AUTO) 0 % (0-1); EOSINOPHILS % (AUTO) 0 % (1-7); LYMPHOCYTES # (AUTO) 1.14 x10^3/uL (1-3.4); LYMPHOCYTES % (AUTO) 8 % (22-44); MD NO; MEAN CORPUSCULAR HEMOGLOBIN 31.5 pg (27.5-34.5); MEAN CORPUSCULAR HGB CONC 33.1 g/dL (33.2-36.2); MEAN CORPUSCULAR VOLUME 95.2 fL (81-97); MEAN PLATELET VOLUME 8.6 fL (7.4-10.4); MONOCYTES # (AUTO) 1.44 x10^3/uL (0.2-0.8); MONOCYTES % (AUTO) 11 % (2-9); NEUTROPHILS # (AUTO) 10.87 x10^3/uL (1.8-6.8); NEUTROPHILS % (AUTO) 81 % (42-75); PLATELET COUNT 158 x10^3/uL (130-400); RED CELL DISTRIBUTION WIDTH 13.8 % (9.4-14.8)
[2019-05-05] MEDS: TAMSULOSIN 0.4 MG CAP.ER.24H PO SCH (08:59)
[2019-05-05 09:56] LABS: MICROSCOPIC AUTO
[2019-05-05 10:05] LABS: CULTURE INDICATED? NO
[2019-05-05 14:00] VITALS: BP 131/80
[2019-05-05] MEDS: ENOXAPARIN 40 MG/0.4 ML SQ SCH (16:38)
[2019-05-05 19:07] VITALS: BP 118/68
[2019-05-05] MEDS: AMLODIPINE 10 MG TAB PO SCH (20:28)
[2019-05-05] MEDS: LOSARTAN 25MG TABLET PO SCH (20:28)
[2019-05-06] MEDS: LACTATED RINGERS 1,000 ML IV SCH ×3 (00:55→14:42)
[2019-05-06 01:46] VITALS: BP 122/69
[2019-05-06] MEDS: HYDROmorphone 2 MG/ML, 1ML IVPush PRN ×2 (03:06→08:01)
[2019-05-06] MEDS: OxyconTIN ER 10 MG TAB.ER PO SCH ×2 (04:43→17:03)
[2019-05-06 05:56] LABS: BASOPHILS # (AUTO) 0.03 x10^3/uL (0-0.1); BASOPHILS % (AUTO) 0 % (0-1); EOSINOPHILS % (AUTO) 0 % (1-7); LYMPHOCYTES # (AUTO) 1.44 x10^3/uL (1-3.4); LYMPHOCYTES % (AUTO) 16 % (22-44); MD NO; MEAN CORPUSCULAR HEMOGLOBIN 32.3 pg (27.5-34.5); MEAN CORPUSCULAR HGB CONC 33.7 g/dL (33.2-36.2); MEAN PLATELET VOLUME 8.6 fL (7.4-10.4); MONOCYTES # (AUTO) 1.11 x10^3/uL (0.2-0.8); MONOCYTES % (AUTO) 12 % (2-9); NEUTROPHILS # (AUTO) 6.68 x10^3/uL (1.8-6.8); NEUTROPHILS % (AUTO) 72 % (42-75); PLATELET COUNT 136 x10^3/uL (130-400); RED BLOOD COUNT 3.27 x10^6/uL (4.38-5.82); RED CELL DISTRIBUTION WIDTH 13.7 % (9.4-14.8)
[2019-05-06 06:07] LABS: ALBUMIN 2.8 g/dL (3.4-5.0); ANION GAP 9 mmol/L (5-15); CALCIUM 8.5 mg/dL (8.5-10.1); CHLORIDE 103 mmol/L (98-107)
[2019-05-06 06:12] LABS: ALANINE AMINOTRANSFERASE 49 U/L (12-78); ALKALINE PHOSPHATASE 43 U/L (45-117); CREATININE 1.09 mg/dL (0.7-1.3); TOTAL PROTEIN 5.9 g/dL (6.4-8.2)
[2019-05-06 07:38] VITALS: BP 127/70
[2019-05-06] MEDS: TAMSULOSIN 0.4 MG CAP.ER.24H PO SCH (08:00)
[2019-05-06 13:45] VITALS: BP 113/63
[2019-05-06] MEDS ORDERED: MAGNESIUM SULFATE PMX 2GM/50ML 50 ML IV ONE (14:00)
[2019-05-06] MEDS: ENOXAPARIN 40 MG/0.4 ML SQ SCH (14:34)
[2019-05-21] MEDS ORDERED: TRAM50TA2 PO (17:01)
== END 2019-05-06 19:02 | disposition home or self-care (01) | DRG 438 ==
LOC: ED 12:33 → EDIP 13:51 → 3NE 14:42
PROVIDERS: ADMIT Internal Medicine; ATTEND Internal Medicine
DX: K85.90 Acute pancreatitis without necrosis or infection, unspecified (principal); N17.0 Acute kidney failure with tubular necrosis; D72.823 Leukemoid reaction; E78.00 Pure hypercholesterolemia, unspecified; E78.5 Hyperlipidemia, unspecified; I10 Essential (primary) hypertension; K21.9 Gastro-esophageal reflux disease without esophagitis; K86.1 Other chronic pancreatitis; N40.0 Benign prostatic hyperplasia without lower urinary tract symptoms; Z80.8 Family history of malignant neoplasm of other organs or systems; Z82.49 Family history of ischemic heart disease and other diseases of the circulatory system; Z87.891 Personal history of nicotine dependence
CPT/HCPCS: 36415; 74181; 80053; 80061; 80307; 81001; 83036; 83605; 83690; 83735; 84100; 84145; 84443; 85025; 87040; 96374; 96375; 99285; G0378; J1170; J1650; J2405; J3475; J7040; J7120

== ENCOUNTER 2019-05-17 04:41 | Inpatient (IN) | payer OTHER, MEDICARE ==
[~2019-05-17] VITALS: Ht 182.9 cm; Wt 79.6 kg
[2019-05-21 14:24] VITALS: BP 128/79
== END 2019-05-21 17:05 | disposition home or self-care (01) | DRG 439 ==
LOC: ED 06:28 → EDIP 09:05 → 3NE 12:26 → DCLOUNGE 05-21 16:44
PROVIDERS: ADMIT Internal Medicine; ATTEND Internal Medicine
DX: K85.00 Idiopathic acute pancreatitis without necrosis or infection (principal); K86.2 Cyst of pancreas; K21.9 Gastro-esophageal reflux disease without esophagitis; N40.0 Benign prostatic hyperplasia without lower urinary tract symptoms; K86.1 Other chronic pancreatitis; I10 Essential (primary) hypertension; E83.42 Hypomagnesemia; E78.5 Hyperlipidemia, unspecified; E78.00 Pure hypercholesterolemia, unspecified; D64.9 Anemia, unspecified; E87.6 Hypokalemia; Z87.891 Personal history of nicotine dependence; Z82.49 Family history of ischemic heart disease and other diseases of the circulatory system; Z80.8 Family history of malignant neoplasm of other organs or systems; R73.9 Hyperglycemia, unspecified
CPT/HCPCS: 36415; 76700; 80048; 80053; 81003; 83690; 83735; 84100; 85025; 96374; 96375; 96376; G0378; J1170; J2405; J3475; C9113; J7030; J7120

== ENCOUNTER 2019-11-27 07:00 | Inpatient (IN) | payer OTHER, MEDICARE ==
[~2019-11-27] VITALS: Ht 180.3 cm; Wt 83.7 kg
[~2019-11-27 07:00] MED LIST changes: +ACET500T64 PO; -ACET500T71 PO
[2019-11-27] MEDS ORDERED: ONDANSETRON ODT 4 MG PO ONE (07:30)
[2019-11-27] MEDS ORDERED: OMEP-110 PO (08:16)
--- NOTE | 2019-11-27 08:26 | NUR ---
PT AMBULATORY FROM LOBBY TO ROOM. BP AND SP02 MONITORS PLACED. PT ATTEMPTED TO PROVIDE URINE SAMPLE BUT WAS UNABLE AT THIS TIME. PIV EST AND LABS DRAWN. DR THAYER AT BEDSIDE, PT ASSESSMENT POC DISCUSSED AND ORDERS REC'D. CALL LIGHT W/I REACH, WARM BLANKET PROVIDED.
[2019-11-27] MEDS ORDERED: HYDROmorphone 1 MG/ML, 1ML INJ IV ONE (08:30)
[2019-11-27] MEDS ORDERED: ONDANSETRON 2MG/ML, 2ML IVPush PRN ×2 (08:30→10:30)
[2019-11-27] MEDS ORDERED: SODIUM CHLORIDE 0.9% 1,000 ML IV ONE ×2 (08:34→10:07)
[2019-11-27 08:43] LABS: BASOPHILS # (AUTO) 0.02 x10^3/uL (0-0.1); BASOPHILS % (AUTO) 0 % (0-1); EOSINOPHILS # (AUTO) 0.01 x10^3/uL (0-0.4); EOSINOPHILS % (AUTO) 0 % (1-7); LYMPHOCYTES # (AUTO) 0.79 x10^3/uL (1-3.4); LYMPHOCYTES % (AUTO) 10 % (22-44); MD NO; MEAN CORPUSCULAR HEMOGLOBIN 32.5 pg (27.5-34.5); MEAN CORPUSCULAR HGB CONC 33.7 g/dL (33.2-36.2); MEAN CORPUSCULAR VOLUME 96.5 fL (81-97); MEAN PLATELET VOLUME 8.3 fL (7.4-10.4); MONOCYTES # (AUTO) 0.55 x10^3/uL (0.2-0.8); MONOCYTES % (AUTO) 7 % (2-9); NEUTROPHILS # (AUTO) 6.77 x10^3/uL (1.8-6.8); NEUTROPHILS % (AUTO) 83 % (42-75); PLATELET COUNT 141 x10^3/uL (130-400); RED BLOOD COUNT 3.89 x10^6/uL (4.38-5.82); RED CELL DISTRIBUTION WIDTH 15.2 % (9.4-14.8)
[2019-11-27] MEDS ORDERED: HYDROmorphone 1 MG/ML, 1ML INJ ONE ×2 (08:45→12:33)
[2019-11-27] MEDS ORDERED: ONDANSETRON 2MG/ML, 2ML ONE (08:45)
[2019-11-27 08:52] LABS: ALANINE AMINOTRANSFERASE 21 U/L (12-78); ALBUMIN 3.7 g/dL (3.4-5.0); ANION GAP 6 mmol/L (5-15); CHLORIDE 113 mmol/L (98-107); CREATININE 1.35 mg/dL (0.7-1.3)
--- NOTE | 2019-11-27 08:54 | NUR ---
PT MED NOTED FOR PAIN AND NAUSEA. IVF INFUSING WIDE OPEN W/O DIFFICUTLY. CALL LIGHT W/I REACH, AT BEDSIDE.
[2019-11-27 08:55] LABS: ALKALINE PHOSPHATASE 50 U/L (45-117); BILIRUBIN,TOTAL 0.7 mg/dL (0.2-1.0); TOTAL PROTEIN 7.5 g/dL (6.4-8.2)
[2019-11-27] MEDS ORDERED: SODIUM CHLORIDE 0.9% 1,000ML IVBOLUS ONE (09:00)
[2019-11-27] MEDS ORDERED: HYDROmorphone 2 MG/ML, 1ML IVPush PRN (09:00)
[2019-11-27] MEDS ORDERED: SODIUM CHLORIDE FLUSH 10ML SYR IVF ONE (09:00)
--- NOTE | 2019-11-27 09:06 | NUR ---
PT TOLLERATED DILAUDID WELL. PAIN NOW 02/15, VSS
--- NOTE | 2019-11-27 10:15 | NUR ---
PT OOB TO STAND AND USE URINAL. MINIMAL OUTPUT, PT DENIES BLADDER DISCOMFORT. WILL SCAN BLADDER
[2019-11-27] MEDS ORDERED: MAGNESIUM SULFATE PMX 2GM/50ML 50 ML IV ONE (10:30)
[2019-11-27] MEDS ORDERED: BACLOFEN 10 MG TABLET PO PRN (10:30)
[2019-11-27] MEDS ORDERED: hydrALAzine 20 MG/ML, 1ML IVPush PRN (10:30)
[2019-11-27] MEDS ORDERED: SODIUM CHLORIDE FLUSH 10ML SYR IVF PRN (10:30)
[2019-11-27] MEDS ORDERED: ACETAMINOPHEN 325 MG TABLET PO PRN (10:30)
[2019-11-27] MEDS ORDERED: ONDANSETRON ODT 4 MG PO PRN (10:30)
--- NOTE | 2019-11-27 10:30 | NUR ---
DR NICOLE AT BEDSIDE. POC FOR ADMIT DISCUSSED WITH PT.
[2019-11-27] MEDS ORDERED: MAGNESIUM SULFATE PMX 2GM/50ML 0 ML ONE (10:36)
[2019-11-27] MEDS ORDERED: MAGNESIUM SULFATE/D5W 100 ML IV ONE (11:00)
--- NOTE | 2019-11-27 11:06 | NUR ---
PT PLACED ON SUPERVISOR FRUIT GRADING AND MAGNESSIUM INFUSING NOTED.
--- NOTE | 2019-11-27 11:12 | NUR ---
PT TO MRI WITH TECH TRANSPORT. IVF STOPPED.
--- NOTE | 2019-11-27 12:16 | NUR ---
PT RTD FROM MRI. OOB AND AMBULATED TO BATHROOM WITH UPRIGHT STEADY GAIT. RTD TO ROOM W/O INCIDENT. IVF RESTARTED INCLUDING THE MAGNESSIUM PT ON CARDIAC MONITORING NAD NOTED, VSS.
--- NOTE | 2019-11-27 12:36 | NUR ---
PT MED FOR PAIN 5/10 NOTED.
[2019-11-27] MEDS: LACTATED RINGERS 1,000 ML IV SCH ×3 (13:53→23:48)
[2019-11-27] MEDS ORDERED: TAMSULOSIN 0.4 MG CAP.ER.24H ONE (15:55)
[2019-11-27] MEDS: TAMSULOSIN 0.4 MG CAP.ER.24H PO SCH (15:59)
[2019-11-27] MEDS ORDERED: ACETAMINOPHEN 325 MG TABLET ONE (16:07)
[2019-11-27] MEDS: LOVASTATIN 40 MG TABLET PO SCH (20:05)
[2019-11-27] MEDS: OMEPRAZOLE 20 MG CAPSULE.DR PO SCH (20:05)
[2019-11-27] MEDS: OXYcodone IR 5MG TABLET PO PRN (20:05)
[2019-11-27] MEDS: FENOFIBRATE 54 MG TABLET PO SCH (20:28)
[2019-11-27 20:56] VITALS: BP 105/72
[2019-11-28] MEDS: morphine SULFATE 10 MG/ML, 1ML IVPush PRN ×2 (00:37→19:11)
[2019-11-28] MEDS: OXYcodone IR 5MG TABLET PO PRN ×2 (00:37→19:12)
[2019-11-28 02:20] VITALS: BP 116/64
[2019-11-28] MEDS: LACTATED RINGERS 1,000 ML IV SCH ×3 (04:57→21:05)
[2019-11-28 06:09] LABS: ALBUMIN 3.2 g/dL (3.4-5.0); ANION GAP 7 mmol/L (5-15); CALCIUM 8.7 mg/dL (8.5-10.1); CHLORIDE 109 mmol/L (98-107)
[2019-11-28 06:13] LABS: ALANINE AMINOTRANSFERASE 151 U/L (12-78); ALKALINE PHOSPHATASE 59 U/L (45-117); BILIRUBIN,TOTAL 2.1 mg/dL (0.2-1.0); CREATININE 1.08 mg/dL (0.7-1.3); TOTAL PROTEIN 6.5 g/dL (6.4-8.2)
[2019-11-28 06:16] LABS: BASOPHILS # (AUTO) 0.02 x10^3/uL (0-0.1); BASOPHILS % (AUTO) 0 % (0-1); EOSINOPHILS # (AUTO) 0.01 x10^3/uL (0-0.4); EOSINOPHILS % (AUTO) 0 % (1-7); LYMPHOCYTES # (AUTO) 1.16 x10^3/uL (1-3.4); LYMPHOCYTES % (AUTO) 16 % (22-44); MD NO; MEAN CORPUSCULAR HGB CONC 34.1 g/dL (33.2-36.2); MEAN CORPUSCULAR VOLUME 96.6 fL (81-97); MEAN PLATELET VOLUME 8.6 fL (7.4-10.4); MONOCYTES # (AUTO) 0.76 x10^3/uL (0.2-0.8); MONOCYTES % (AUTO) 11 % (2-9); NEUTROPHILS # (AUTO) 5.27 x10^3/uL (1.8-6.8); NEUTROPHILS % (AUTO) 73 % (42-75); PLATELET COUNT 102 x10^3/uL (130-400); RED BLOOD COUNT 3.42 x10^6/uL (4.38-5.82); RED CELL DISTRIBUTION WIDTH 15.4 % (9.4-14.8)
[2019-11-28] MEDS: TAMSULOSIN 0.4 MG CAP.ER.24H PO SCH (08:04)
[2019-11-28 08:39] VITALS: BP 123/66
[2019-11-28] MEDS ORDERED: TAMSULOSIN 0.4 MG CAP.ER.24H PO SCH (09:00)
[2019-11-28 12:58] VITALS: BP 133/64
[2019-11-28 21:02] VITALS: BP 122/71
[2019-11-28] MEDS: OMEPRAZOLE 20 MG CAPSULE.DR PO SCH (21:05)
[2019-11-28] MEDS: LOVASTATIN 40 MG TABLET PO SCH (21:05)
[2019-11-28] MEDS: FENOFIBRATE 54 MG TABLET PO SCH (21:05)
[2019-11-29 00:02] VITALS: BP 121/71
[2019-11-29] MEDS: LACTATED RINGERS 1,000 ML IV SCH (04:47)
[2019-11-29] MEDS: OXYcodone IR 5MG TABLET PO PRN (04:48)
[2019-11-29 06:04] LABS: MEAN CORPUSCULAR HGB CONC 34.4 g/dL (33.2-36.2); MEAN CORPUSCULAR VOLUME 95.8 fL (81-97); RED BLOOD COUNT 3.07 x10^6/uL (4.38-5.82); RED CELL DISTRIBUTION WIDTH 14.7 % (9.4-14.8)
[2019-11-29 06:12] LABS: ALANINE AMINOTRANSFERASE 95 U/L (12-78); ALBUMIN 2.8 g/dL (3.4-5.0); ANION GAP 6 mmol/L (5-15); CALCIUM 8.2 mg/dL (8.5-10.1); CHLORIDE 106 mmol/L (98-107); CREATININE 1.09 mg/dL (0.7-1.3)
[2019-11-29 06:16] LABS: ALKALINE PHOSPHATASE 58 U/L (45-117); BILIRUBIN,TOTAL 1.9 mg/dL (0.2-1.0); TOTAL PROTEIN 5.9 g/dL (6.4-8.2)
[2019-11-29 06:31] LABS: BASOPHILS # (AUTO) 0.02 x10^3/uL (0-0.1); BASOPHILS % (AUTO) 0 % (0-1); EOSINOPHILS # (AUTO) 0.02 x10^3/uL (0-0.4); EOSINOPHILS % (AUTO) 0 % (1-7); LYMPHOCYTES # (AUTO) 1.31 x10^3/uL (1-3.4); LYMPHOCYTES % (AUTO) 19 % (22-44); MD SCAN; MEAN PLATELET VOLUME 8.8 fL (7.4-10.4); MONOCYTES # (AUTO) 0.94 x10^3/uL (0.2-0.8); MONOCYTES % (AUTO) 13 % (2-9); NEUTROPHILS # (AUTO) 4.75 x10^3/uL (1.8-6.8); NEUTROPHILS % (AUTO) 68 % (42-75); PLATELET COUNT 88 x10^3/uL (130-400)
[2019-11-29] MEDS: TAMSULOSIN 0.4 MG CAP.ER.24H PO SCH (08:25)
[2019-11-29 09:08] VITALS: BP 109/64
[2019-11-29 14:37] VITALS: BP 125/74
== END 2019-11-29 16:55 | disposition home or self-care (01) | DRG 438 ==
LOC: ED 08:09 → EDIP 10:07 → SUATTDRO 10:22 → 3N 19:25 → DCLOUNGE 11-29 16:47
PROVIDERS: ADMIT Hospitalist; ATTEND Hospitalist
DX: K85.90 Acute pancreatitis without necrosis or infection, unspecified (principal); N17.0 Acute kidney failure with tubular necrosis; K86.2 Cyst of pancreas; D64.9 Anemia, unspecified; D69.6 Thrombocytopenia, unspecified; E78.5 Hyperlipidemia, unspecified; E83.42 Hypomagnesemia; F17.210 Nicotine dependence, cigarettes, uncomplicated; I10 Essential (primary) hypertension; K21.9 Gastro-esophageal reflux disease without esophagitis; K83.8 Other specified diseases of biliary tract; N40.0 Benign prostatic hyperplasia without lower urinary tract symptoms; Z80.8 Family history of malignant neoplasm of other organs or systems; Z82.49 Family history of ischemic heart disease and other diseases of the circulatory system; Z90.49 Acquired absence of other specified parts of digestive tract; Z79.899 Other long term (current) drug therapy
CPT/HCPCS: 36415; 74181; 76700; 80053; 83690; 83735; 84100; 85025; 96361; 96374; 96375; 99285; G0378; J1170; J2405; J2270; J7030; J7120